=== PATIENT | female | born 1965 | race Caucasian/White ===

== ENCOUNTER → 2021-03-22 | Outpatient (CLI) | payer BC | END | disposition home or self-care (01) | LOC: LABPAT 10:24 | PROVIDERS: ATTEND Surgery Plastic and Reconstructive Surgery | DX: Z01.812 Encounter for preprocedural laboratory examination (principal); Z20.822 Contact with and (suspected) exposure to COVID-19 | CPT/HCPCS: U0003; C9803; U0005 ==

== ENCOUNTER → 2021-09-11 | Outpatient (CLI) | payer BC ==
--- NOTE | 2021-09-11 22:42 | CT ---
EXAMINATION TYPE: CT abdomen pelvis w con CT DLP: 870.60 mGycm, Automated exposure control for dose reduction was used. DATE OF EXAM: 09/11/2021 5:31 PM COMPARISON: None CLINICAL INDICATION:Female, 56 years old with history of C18.9 MALIGNANT NEOPLASM OF COLON, UNSPECIFI ED; lower abdominal pain. hx of mass in colon TECHNIQUE: Standard CT of the abdomen and pelvis following the administration of 100 cc of Isovue 3 00 IV contrast material and oral contrast. Coronal and sagittal reformats were performed. FINDINGS: LOWER CHEST: Unremarkable ABDOMEN LIVER: Unremarkable GALLBLADDER AND BILE DUCTS: Unremarkable. PANCREAS: Unremarkable. SPLEEN: Unremarkable. ADRENAL GLANDS: Unremarkable. KIDNEYS AND URETERS: No evidence of hydronephrosis or renal calculus. PELVIS BLADDER: Unremarkable REPRODUCTIVE: Unremarkable. ABDOMEN & PELVIS STOMACH AND BOWEL: Small hiatal hernia, duodenum is unremarkable. No evidence of mass or bowel wall t hickening. No evidence of bowel obstruction. PERITONEUM: No evidence of pneumoperitoneum or free fluid. VASCULATURE: No evidence of aortic aneurysm. MUSCULOSKELETAL: No acute osseous abnormalities. Mild disc degeneration changes are present throughou t the thoracolumbar spine. LYMPH NODES: No gross evidence for lymphadenopathy. SOFT TISSUE/ABDOMINAL WALL: Tiny fat filled helical hernia. IMPRESSION: No evidence for lymphadenopathy or bowel/intra-abdominal mass.
== END | disposition home or self-care (01) ==
LOC: RADCTMAIN 14:58
PROVIDERS: ATTEND Surgery Plastic and Reconstructive Surgery
DX: C18.9 Malignant neoplasm of colon, unspecified (principal)
CPT/HCPCS: 74177; Q9967

== ENCOUNTER 2021-10-16 08:46 | Day surgery (SDC) | payer BC ==
[2021-10-14 12:08] VITALS: BMI 27.3
[~2021-10-16 08:46] MED LIST: LACTATED RINGERS 1,000 ML IV SCH; LIDOCAINE 1% (10MG/ML) FOR IV START INTRADERMA PRN
[2021-10-16 09:06] VITALS: TEMP 98.4
[2021-10-16 09:33] LABS: Glucose,Whole Blood 83 mg/dL (70-110)
--- NOTE | 2021-10-16 09:40 | P.GSHP ---
History of Present Illness H&P Date: 10/16/21 CHIEF COMPLAINT: Colon screen HISTORY OF PRESENT ILLNESS: The patient is a 56-year-old female who presents for colon screen. Lower endoscopy was offered for further evaluation and management. PAST MEDICAL HISTORY: Please see list. PAST SURGICAL HISTORY: Please see list. MEDICATIONS: Please see list. ALLERGIES: Please see list. SOCIAL HISTORY: No illicit drug use FAMILY HISTORY: No reports of Crohn disease or ulcerative colitis. REVIEW OF ORGAN SYSTEMS: CONSTITUTIONAL: No reports of fevers or chills. PHYSICAL EXAM: VITAL SIGNS: Stable GENERAL: Well-developed pleasant in no acute distress. HEENT: No scleral icterus. Extraocular movements grossly intact. Moist buccal mucosa. NECK: Supple without lymphadenopathy. CHEST: Unlabored respirations. Equal bilateral excursions. CARDIOVASCULAR: Regular rate and rhythm. Distal 2+ pulses. ABDOMEN: Soft, nontender, nondistended. MUSCULOSKELETAL: No clubbing, cyanosis, or edema. ASSESSMENT: 1. Colon screen. PLAN: 1. Recommend proceeding with a lower endoscopy Past Medical History Past Medical History: Asthma, Thyroid Disorder Additional Past Medical History / Comment(s): Hypoglycemia. Rectal bleeding . Hx Diverticulitis. Multiple food allergies.HAS HEADACHES , COLON -TUMOR NON CANCEROUS" History of Any Multi-Drug Resistant Organisms: None Reported Past Surgical History: Tonsillectomy, Tubal Ligation Additional Past Surgical History / Comment(s): Thyroidectomy. Past Anesthesia/Blood Transfusion Reactions: Previous Problems w/ Anesthesia Additional Past Anesthesia/Blood Transfusion Reaction / Comment(s): "Had wheezing and no voice for weeks after thyroidectomy". PER PATIENT Smoking Status: Never smoker - Past Family History Mother Family Medical History: No Reported History Medications and Allergies Home Medications Medication Instructions Recorded Confirmed Type Acetaminophen [Tylenol Extra 1,000 mg PO BID PRN 03/21/21 10/16/21 History Strength] Albuterol Inhaler [Ventolin Hfa 1 puff INHALATION DIRECTED PRN 03/21/21 10/16/21 History Inhaler] Fexofenadine HCl [Digna Allergy] 180 mg PO DAILY PRN 03/21/21 10/16/21 History Lactase [Lactaid] 3,000 unit PO DIRECTED PRN 03/21/21 10/16/21 History Levothyroxine Sodium [Tirosint] 88 mcg PO DAILY 03/21/21 10/16/21 History Montelukast Sodium [Singulair] 10 mg PO HS 03/21/21 10/16/21 History calcitrioL [Calcitriol] 0.25 mcg PO DAILY 03/21/21 10/16/21 History diphenhydrAMINE HCL [Children's 12.5 mg PO HS PRN 03/21/21 10/16/21 History Benadryl Allergy] Ascorbic Acid [Vitamin C] 1,000 mg PO TID 10/14/21 10/16/21 History Fluticasone Propion/Salmeterol 1 inhalation PO BID 10/14/21 10/16/21 History [Wixela 500-50 Inhub] Allergies Allergy/AdvReac Type Severity Reaction Status Date / Time aloe Allergy Rash/Hives Verified 10/16/21 09:08 banana Allergy Unknown Verified 10/16/21 09:08 cefaclor [From Ceclor] Allergy Unknown Verified 10/16/21 09:08 [place] And Derivatives Allergy Unknown Verified 10/16/21 09:08 [[place]] clarithromycin [From Biaxin] Allergy Diarrhea Verified 10/16/21 09:08 coffee (Coffea arabica) Allergy Wheezing Verified 10/16/21 09:08 egg Allergy Vomiting Verified 10/16/21 09:08 Fish Containing Products Allergy Unknown Verified 10/16/21 09:08 [Fish] kiwi Allergy Unknown Verified 10/16/21 09:08 latex Allergy BURNING Verified 10/16/21 09:08 FEELING OF MOUTH,ITCHING Milk Containing Products Allergy Diarrhea Verified 10/16/21 09:08 [Dairy] onion Allergy Gas Verified 10/16/21 09:08 peanut Allergy Burning Verified 10/16/21 09:08 skin silk Allergy Rash/Hives Verified 10/16/21 09:08 Sulfa (Sulfonamide Allergy Alters mood Verified 10/16/21 09:08 Antibiotics) sulfamethoxazole Allergy Rash/Hives Verified 10/16/21 09:08 [From Septra] trimethoprim [From Septra] Allergy Rash/Hives Verified 10/16/21 09:08 Artificial Colors/Flavors Allergy Unknown Uncoded 10/16/21 09:08 Seafood Allergy Unknown Uncoded 10/16/21 09:08 Vegetables Allergy Pain Uncoded 10/16/21 09:08 (Abdominal/Back) Surgical - Exam Vital Signs Temp Pulse Resp BP Pulse Ox 98.4 F 98 18 106/73 99 10/16/21 09:01 10/16/21 09:01 10/16/21 09:01 10/16/21 09:01 10/16/21 09:01
[2021-10-16] MEDS ORDERED: PROPOFOL 10 MG/ML 20 ML VIAL IV ONE (10:01)
[2021-10-16] MEDS ORDERED: LIDOCAINE 2% INJ 20 MG/ML (2 ML VIAL) ONE (10:01)
--- NOTE | 2021-10-16 11:01 | P.PCN ---
Date of Procedure: 10/16/21 Description of Procedure: PREOPERATIVE DIAGNOSIS: Ascending colon adenoma POSTOPERATIVE DIAGNOSIS: Ascending colon adenoma Sigmoid diverticulosis Grade 4 internal/external hemorrhoid OPERATION: Colonoscopy to the ileocecal valve and appendiceal orifice, cecum Colonoscopy with hot snare polypectomy, ascending colon adenoma and retrieval with Lind net Colonoscopy with ablation, ascending colon adenoma SURGEON: Kamille Birmingham MD. ANESTHESIA: MAC. INDICATIONS: The patient is an 56-year-old female who presents with incomplete resection of ascending colon adenoma. She presents for treatment or reexcision of the area. Benefits and risks were described and informed consent was obtained. DESCRIPTION OF PROCEDURE: The patient had undergone Sutab prep. The patient had been brought into the operating room and laid in the left lateral decubitus position. After adequate intravenous sedation, the rectum was examined with 2% lidocaine jelly. External hemorrhoids were encountered. The rectal tone was within normal limits. No lesions were palpated in the rectal vault. An Olympus colonoscope was advanced until the cecum, ileocecal valve and appendiceal orifice were clearly viewed. The prep was excellent. Sigmoid diverticulosis was encountered. Combination of hot snare resection, ablation, Lind and extraction was performed for ascending adenoma. No evidence of focal colitis was found. Retroflexion of the scope demonstrated grade 4 internal hemorrhoids without active bleeding or inf lammation. The colon was desufflated. The patient had tolerated the procedure well. Withdrawal time was over 6 minutes. FINDINGS: Aronchick preparation quality scale 1 (1-5) Internal hemorrhoids, grade 4 External hemorrhoids, grade 4. No arteriovenous malformations. Sigmoid diverticulosis Piecemeal resection of flat villous adenoma, 3 cm, ascending colon using rotatable snare, ablation and RothNet extraction Residual blue dye ascending colon Highly tortuous sigmoid colon on abdominal wall pressure No focal colitis. RECOMMENDATIONS: Repeat colonoscopy in 6 months, Apr 2022 for piecemeal resection of flat villous adenoma Plan - Discharge Summary Discharge Rx Participant: No New Discharge Prescriptions: Continue Albuterol Inhaler [Ventolin Hfa Inhaler] 1 puff INHALATION DIRECTED PRN PRN Reason: Asthma Fexofenadine HCl [Digna Allergy] 180 mg PO DAILY PRN PRN Reason: ALLERGIES Montelukast Sodium [Singulair] 10 mg PO HS Lactase [Lactaid] 3,000 unit PO DIRECTED PRN PRN Reason: When consuming dairy Ascorbic Acid [Vitamin C] 1,000 mg PO TID diphenhydrAMINE HCL [Children's Benadryl Allergy] 12.5 mg PO HS PRN PRN Reason: ALLERGIES calcitrioL [Calcitriol] 0.25 mcg PO DAILY Levothyroxine Sodium [Tirosint] 88 mcg PO DAILY Acetaminophen [Tylenol Extra Strength] 1,000 mg PO BID PRN PRN Reason: Pain Fluticasone Propion/Salmeterol [Wixela 500-50 Inhub] 1 inhalation PO BID Discharge Medication List Acetaminophen [Tylenol Extra Strength] 1,000 mg PO BID PRN 03/21/21 [History] Albuterol Inhaler [Ventolin Hfa Inhaler] 1 puff INHALATION DIRECTED PRN 03/21/21 [History] Fexofenadine HCl [Digna Allergy] 180 mg PO DAILY PRN 03/21/21 [History] Lactase [Lactaid] 3,000 unit PO DIRECTED PRN 03/21/21 [History] Levothyroxine Sodium [Tirosint] 88 mcg PO DAILY 03/21/21 [History] Montelukast Sodium [Singulair] 10 mg PO HS 03/21/21 [History] calcitrioL [Calcitriol] 0.25 mcg PO DAILY 03/21/21 [History] diphenhydrAMINE HCL [Children's Benadryl Allergy] 12.5 mg PO HS PRN 03/21/21 [History] Ascorbic Acid [Vitamin C] 1,000 mg PO TID 10/14/21 [History] Fluticasone Propion/Salmeterol [Wixela 500-50 Inhub] 1 inhalation PO BID 10/14/21 [History] Follow up Appointment(s)/Referral(s): Kamille Birmingham MD [STAFF PHYSICIAN] - 11/12/21 Patient Instructions/Handouts: *Surgery [facility] - (Anesthesia) Endoscopy Discharge Instructions Activity/Diet/Wound Care/Special Instructions: Repeat colonoscopy in 1 year, 2022 Discharge Disposition: HOME SELF-CARE
[2021-10-16 11:10] VITALS: BP 105/73; PULSE 73; RESP 20
== END 2021-10-16 11:39 | disposition home or self-care (01) ==
LOC: ORWHC2ENDO 08:46
PROVIDERS: ATTEND Surgery Plastic and Reconstructive Surgery
DX: D12.2 Benign neoplasm of ascending colon (principal); K57.30 Diverticulosis of large intestine without perforation or abscess without bleeding; K64.4 Residual hemorrhoidal skin tags; K64.3 Fourth degree hemorrhoids; Q43.8 Other specified congenital malformations of intestine; J45.909 Unspecified asthma, uncomplicated; E16.2 Hypoglycemia, unspecified; Z87.19 Personal history of other diseases of the digestive system; Z98.51 Tubal ligation status; E89.0 Postprocedural hypothyroidism; Z79.890 Hormone replacement therapy; Z79.899 Other long term (current) drug therapy; Z88.1 Allergy status to other antibiotic agents; Z91.012 Allergy to eggs; Z91.040 Latex allergy status; Z91.011 Allergy to milk products; Z91.010 Allergy to peanuts; Z91.013 Allergy to seafood; Z88.2 Allergy status to sulfonamides; Z88.8 Allergy status to other drugs, medicaments and biological substances; Z91.018 Allergy to other foods
CPT/HCPCS: 88305; 45385; 45388; J2704; J2001

== ENCOUNTER → 2021-11-18 | Outpatient (CLI) | payer BC ==
[2021-11-18 16:28] LABS: INR 0.9 (<1.2); Partial Thromboplastin Time 24.4 sec (22.0-30.0); Prothrombin Time 10.2 sec (9.0-12.0)
[2021-11-19 00:19] LABS: % Iron Saturation 17.71 (12.00-45.00); ALT 16 U/L (8-44); AST 23 U/L (13-35); African American GFR (CKD) 126.5 (60.0-200.0); Albumin 4.1 g/dL (3.8-4.9); Albumin/Globulin Ratio 1.64 (1.60-3.17); Alkaline Phosphatase 71 U/L (41-126); BUN/Creat Ratio 12.66 Ratio (12.00-20.00); Blood Urea Nitrogen 5.9 mg/dL (9.0-27.0); Calcium 8.5 mg/dL (8.7-10.3); Carbon Dioxide 29.7 mmol/L (20.0-27.5); Chloride 101 mmol/L (96-109); Globulin 2.5 g/dL (1.6-3.3); Glucose 97 mg/dL (70-110); Iron 60 ug/dL (50-170); Magnesium 2.2 mg/dL (1.5-2.4); Non-African American GFR(CKD) 109.1 (60.0-200.0); Phosphorus 3.9 mg/dL (2.4-5.1); Potassium 3.6 mmol/L (3.5-5.5); Sodium 143 mmol/L (135-145); Total Iron Binding Capacity 336 ug/dL (228-460); Total Protein 6.6 g/dL (6.2-8.2)
[2021-11-19 01:43] LABS: HCT 36.2 % (37.2-46.3); HGB 12.1 g/dL (12.0-15.0); MCH 33.4 pg (27.0-32.0); MCHC 33.4 g/dL (32.0-37.0); NRBC Per 100 WBC 0 /100 WBCS (0.0-0.0); Platelet Count 197 X 10*3/uL (140-440); RBC 3.62 X 10*6/uL (4.10-5.20); RDW 12.7 % (11.5-14.5); WBC 7.33 X 10*3/uL (4.50-10.00)
[2021-11-19 03:08] LABS: Chol/HDL Ratio 3.64 Ratio; LDL Cholesterol,Calculated 71.8 mg/dL (0.0-131.0); Prealbumin 17.4 mg/dL (18.0-42.0)
== END | disposition home or self-care (01) ==
LOC: LABPAT 15:30
PROVIDERS: ATTEND Surgery Plastic and Reconstructive Surgery
DX: E66.01 Morbid (severe) obesity due to excess calories (principal); E89.1 Postprocedural hypoinsulinemia; D50.8 Other iron deficiency anemias; E44.0 Moderate protein-calorie malnutrition; E55.9 Vitamin D deficiency, unspecified; K74.1 Hepatic sclerosis; N19 Unspecified kidney failure; K50.90 Crohn's disease, unspecified, without complications
CPT/HCPCS: 80053; 80061; 82306; 82525; 82607; 82728; 82746; 83036; 83540; 83550; 83735; 83970; 84100; 84134; 84255; 84425; 84443; 84590; 84630; 85027; 85610; 85730

== ENCOUNTER 2022-07-23 06:44 | Day surgery (SDC) | payer BC ==
[~2022-07-23 06:44] MED LIST changes: -LIDOCAINE 1% (10MG/ML) FOR IV START INTRADERMA PRN
[2022-07-23 07:14] VITALS: RESP 16; TEMP 97.5
[2022-07-23 07:24] LABS: Glucose,Whole Blood 87 mg/dL (70-110)
[2022-07-23] MEDS ORDERED: PROPOFOL 10 MG/ML 20 ML VIAL IV ONE (07:46)
--- NOTE | 2022-07-23 07:51 | P.GSHP ---
History of Present Illness H&P Date: 07/23/22 CHIEF COMPLAINT: Colon screen HISTORY OF PRESENT ILLNESS: The patient is a 57-year-old female who presents for colon screen. Lower endoscopy was offered for further evaluation and management. PAST MEDICAL HISTORY: Please see list. PAST SURGICAL HISTORY: Please see list. MEDICATIONS: Please see list. ALLERGIES: Please see list. SOCIAL HISTORY: No illicit drug use FAMILY HISTORY: No reports of Crohn disease or ulcerative colitis. REVIEW OF ORGAN SYSTEMS: CONSTITUTIONAL: No reports of fevers or chills. PHYSICAL EXAM: VITAL SIGNS: Stable GENERAL: Well-developed pleasant in no acute distress. HEENT: No scleral icterus. Extraocular movements grossly intact. Moist buccal mucosa. NECK: Supple without lymphadenopathy. CHEST: Unlabored respirations. Equal bilateral excursions. CARDIOVASCULAR: Regular rate and rhythm. Distal 2+ pulses. ABDOMEN: Soft, nontender, nondistended. MUSCULOSKELETAL: No clubbing, cyanosis, or edema. ASSESSMENT: 1. Colon screen. PLAN: 1. Recommend proceeding with a lower endoscopy Past Medical History Past Medical History: Asthma, Thyroid Disorder Additional Past Medical History / Comment(s): Hypoglycemia. Rectal bleeding . Hx Diverticulitis. Multiple food allergies.HAS HEADACHES , COLON -TUMOR NON CANCEROUS" History of Any Multi-Drug Resistant Organisms: None Reported Past Surgical History: Tonsillectomy, Tubal Ligation Additional Past Surgical History / Comment(s): Thyroidectomy. Past Anesthesia/Blood Transfusion Reactions: Previous Problems w/ Anesthesia Additional Past Anesthesia/Blood Transfusion Reaction / Comment(s): "Had wheezing and no voice for weeks after thyroidectomy". PER PATIENT Past Psychological History: No Psychological Hx Reported Smoking Status: Never smoker Past Alcohol Use History: None Reported Past Drug Use History: None Reported - Past Family History Mother Family Medical History: No Reported History Medications and Allergies Home Medications Medication Instructions Recorded Confirmed Type Acetaminophen [Tylenol Extra 1,000 mg PO BID PRN 03/21/21 07/21/22 History Strength] Albuterol Inhaler [Ventolin Hfa 1 puff INHALATION DIRECTED PRN 03/21/21 07/21/22 History Inhaler] Fexofenadine HCl [Digna Allergy] 180 mg PO DAILY PRN 03/21/21 07/21/22 History Lactase [Lactaid] 3,000 unit PO DIRECTED PRN 03/21/21 07/21/22 History Levothyroxine Sodium [Tirosint] 88 mcg PO DAILY 03/21/21 07/21/22 History Montelukast Sodium [Singulair] 10 mg PO HS 03/21/21 07/21/22 History calcitrioL [Calcitriol] 0.25 mcg PO DAILY 03/21/21 07/21/22 History diphenhydrAMINE HCL [Children's 12.5 mg PO HS PRN 03/21/21 07/21/22 History Benadryl Allergy] Ascorbic Acid [Vitamin C] 1,000 mg PO TID 10/14/21 07/21/22 History Fluticasone Propion/Salmeterol 1 inhalation PO BID 10/14/21 07/21/22 History [Wixela 500-50 Inhub] Calcium Carbonate [Calcium] 1 tab PO DAILY 07/21/22 07/21/22 History Ketotifen 0.025% Ophth Soln 1 drop BOTH EYES DAILY 07/21/22 07/21/22 History [Zaditor] Magnesium Citrate and Oxide 1 tab PO DAILY 07/21/22 07/21/22 History [Magnesium] hydroCHLOROthiazide 0.5 tab PO QAM 07/21/22 07/21/22 History Allergies Allergy/AdvReac Type Severity Reaction Status Date / Time aloe Allergy Rash/Hives Verified 07/23/22 07:09 banana Allergy Unknown Verified 07/23/22 07:09 blackberry Allergy Swelling Verified 07/23/22 07:09 cabbage Allergy Abdominal Verified 07/23/22 07:09 Pain cefaclor [From Ceclor] Allergy Unknown Verified 07/23/22 07:09 [place] And Derivatives Allergy Unknown Verified 07/23/22 07:09 [[place]] clarithromycin [From Biaxin] Allergy Diarrhea Verified 07/23/22 07:09 coffee (Coffea arabica) Allergy Wheezing Verified 07/23/22 07:09 egg Allergy Vomiting Verified 07/23/22 07:09 Fish Containing Products Allergy Unknown Verified 07/23/22 07:09 [Fish] kiwi Allergy Unknown Verified 07/23/22 07:09 latex Allergy BURNING Verified 07/23/22 07:09 FEELING OF MOUTH,ITCHING Milk Containing Products Allergy Diarrhea Verified 07/23/22 07:09 [Dairy] onion Allergy Gas Verified 07/23/22 07:09 peanut Allergy Burning Verified 07/23/22 07:09 skin potato Allergy Abdominal Verified 07/23/22 07:09 Pain raspberry Allergy Swelling Verified 07/23/22 07:09 silk Allergy Rash/Hives Verified 07/23/22 07:09 Sulfa (Sulfonamide Allergy Alters mood Verified 07/23/22 07:09 Antibiotics) sulfamethoxazole Allergy Rash/Hives Verified 07/23/22 07:09 [From ] trimethoprim [From ] Allergy Rash/Hives Verified 07/23/22 07:09 Artificial Colors/Flavors Allergy Unknown Uncoded 07/23/22 07:09 [place] Allergy Abdominal Uncoded 07/23/22 07:09 Pain Seafood Allergy Unknown Uncoded 07/23/22 07:09 Vegetables Allergy Pain Uncoded 07/23/22 07:09 (Abdominal/Back) Surgical - Exam Vital Signs Temp Pulse Resp BP Pulse Ox 97.5 F L 120 H 16 156/66 99 07/23/22 07:13 07/23/22 07:13 07/23/22 07:13 07/23/22 07:13 07/23/22 07:13
[2022-07-23 08:31] VITALS: BP 106/67; PULSE 89
--- NOTE | 2022-07-23 09:09 | P.PCN ---
Date of Procedure: 07/23/22 Description of Procedure: PREOPERATIVE DIAGNOSIS: Personal history of colon polyps Colonoscopy screening POSTOPERATIVE DIAGNOSIS: Unresectable tubular villous adenoma hepatic flexure/ascending colon Sigmoid diverticulosis Internal hemorrhoids, grade 4 OPERATION: Colonoscopy to the ileocecal valve and appendiceal orifice, cecum Colonoscopy with hot snare polypectomy SURGEON: Kamille Birmingham MD. ANESTHESIA: MAC. INDICATIONS: The patient is an 57-year-old female who presents to history colon polyps. Last colonoscopy within 5 years. Benefits and risks were described and informed consent was obtained. DESCRIPTION OF PROCEDURE: The patient had undergone Sutab prep. The patient had been brought into the operating room and laid in the left lateral decubitus position. After adequate intravenous sedation, the rectum was examined with 2% lidocaine jelly. External hemorrhoids were encountered. The rectal tone was within normal limits. No lesions were palpated in the rectal vault. An Olympus colonoscope was advanced until the cecum, ileocecal valve and appendiceal orifice were clearly viewed. The prep was good. Sigmoid diverticulosis was encountered. Colonic polyps were found and removed. No evidence of focal colitis was found. Retroflexion of the scope demonstrated grade 4 internal hemorrhoids without active bleeding or inflammation. The colon was desufflated. The patient had tolerated the procedure well. Withdrawal time was over 6 minutes. FINDINGS: Aron[place]ick preparation quality scale 2 (1-5) Internal hemorrhoids, grade 4 External hemorrhoids, grade 4. No arteriovenous malformations. Sigmoid diverticulosis Tattoo dye benefit verified at hepatic flexure Removal of 1 polyp: - Snare polypectomy hepatic flexure/ascending colon, flat 15 mm mm tubulovillous adenoma, piecemeal resection, incomplete No focal colitis. RECOMMENDATIONS: Recommend resection of recurrent hepatic flexure/ascending tubulovillous adenoma Plan - Discharge Summary Discharge Rx Participant: No New Discharge Prescriptions: Continue Albuterol Inhaler [Ventolin Hfa Inhaler] 1 puff INHALATION DIRECTED PRN PRN Reason: Asthma Fexofenadine HCl [Digna Allergy] 180 mg PO DAILY PRN PRN Reason: ALLERGIES Montelukast Sodium [Singulair] 10 mg PO HS Lactase [Lactaid] 3,000 unit PO DIRECTED PRN PRN Reason: When consuming dairy Ascorbic Acid [Vitamin C] 1,000 mg PO TID Calcium Carbonate [Calcium] 1 tab PO DAILY hydroCHLOROthiazide 0.5 tab PO QAM Magnesium Citrate and Oxide [Magnesium] 1 tab PO DAILY diphenhydrAMINE HCL [Children's Benadryl Allergy] 12.5 mg PO HS PRN PRN Reason: ALLERGIES calcitrioL [Calcitriol] 0.25 mcg PO DAILY Levothyroxine Sodium [Tirosint] 88 mcg PO DAILY Acetaminophen [Tylenol Extra Strength] 1,000 mg PO BID PRN PRN Reason: Pain Fluticasone Propion/Salmeterol [Wixela 500-50 Inhub] 1 inhalation PO BID Ketotifen 0.025% Ophth Soln [Zaditor] 1 drop BOTH EYES DAILY Discharge Medication List Acetaminophen [Tylenol Extra Strength] 1,000 mg PO BID PRN 03/21/21 [History] Albuterol Inhaler [Ventolin Hfa Inhaler] 1 puff INHALATION DIRECTED PRN 03/21/21 [History] Fexofenadine HCl [Digna Allergy] 180 mg PO DAILY PRN 03/21/21 [History] Lactase [Lactaid] 3,000 unit PO DIRECTED PRN 03/21/21 [History] Levothyroxine Sodium [Tirosint] 88 mcg PO DAILY 03/21/21 [History] Montelukast Sodium [Singulair] 10 mg PO HS 03/21/21 [History] calcitrioL [Calcitriol] 0.25 mcg PO DAILY 03/21/21 [History] diphenhydrAMINE HCL [Children's Benadryl Allergy] 12.5 mg PO HS PRN 03/21/21 [History] Ascorbic Acid [Vitamin C] 1,000 mg PO TID 10/14/21 [History] Fluticasone Propion/Salmeterol [Wixela 500-50 Inhub] 1 inhalation PO BID 10/14/21 [History] Calcium Carbonate [Calcium] 1 tab PO DAILY 07/21/22 [History] Ketotifen 0.025% Ophth Soln [Zaditor] 1 drop BOTH EYES DAILY 07/21/22 [History] Magnesium Citrate and Oxide [Magnesium] 1 tab PO DAILY 07/21/22 [History] hydroCHLOROthiazide 0.5 tab PO QAM 07/21/22 [History] Follow up Appointment(s)/Referral(s): Kamille Birmingham MD [STAFF PHYSICIAN] - 08/12/22 11:00 am Patient Instructions/Handouts: Colorectal Polyps (GEN), Diverticulosis Diet (GEN), Diverticulosis (GEN) Activity/Diet/Wound Care/Special Instructions: Recommend resection for unresectable adenoma Discharge Disposition: HOME SELF-CARE
== END 2022-07-23 09:49 | disposition home or self-care (01) ==
LOC: ORWHC2ENDO 06:44
PROVIDERS: ATTEND Surgery Plastic and Reconstructive Surgery
DX: Z12.11 Encounter for screening for malignant neoplasm of colon (principal); D12.2 Benign neoplasm of ascending colon; K64.3 Fourth degree hemorrhoids; K57.30 Diverticulosis of large intestine without perforation or abscess without bleeding; K64.4 Residual hemorrhoidal skin tags; J45.909 Unspecified asthma, uncomplicated; E07.9 Disorder of thyroid, unspecified; Z90.89 Acquired absence of other organs; Z98.51 Tubal ligation status; Z79.899 Other long term (current) drug therapy; Z86.010 Personal history of colon polyps
CPT/HCPCS: 88305; 45385; J2704

== ENCOUNTER → 2022-10-03 | Outpatient (CLI) | payer BC ==
[~2022-10-03] MED LIST changes: +ACETAMINOPHEN TAB 500 MG TAB PO PRN; +ALVIMOPAN 12 MG CAPSULE PO PRN; +Antibiotics per Pharmacy 1 EACH MISC MISCELLANE PRN; +DEXAMETHASONE SOD PHOSPHATE 4 MG/ML 1 ML VIAL IV ONE; +HEPARIN SODIUM,PORCINE/PF 5,000 UNIT/0.5 ML SYRINGE SQ PRN; +HYDROmorphone 0.5 MG/0.5 ML SYRINGE IVP PRN; +LACTATED RINGERS 1,000 ML IV ONE; +LIDOCAINE 1% (10MG/ML) FOR IV START INTRADERMA PRN; +ONDANSETRON 4 MG/2 ML VIAL IVP PRN; +POTASSIUM CHLORIDE 20 MEQ in WATER FOR INJECTION 1 100ML.BAG IVPB STA; +POTASSIUM CHLORIDE ER 20 MEQ TAB.ER PO STA; +SODIUM CHLORIDE 0.9% 2,000 ML IV ONE; +metroNIDAZOLE-NS PMX 500 MG in SALINE 1 100ML.BAG IVPB PRN
--- NOTE | 2022-10-03 07:42 | P.GSHP ---
History of Present Illness H&P Date: 10/03/22 CHIEF COMPLAINT: Unresectable adenoma HISTORY OF PRESENT ILLNESS: The patient is a 57-year-old female with a two-year history of recurrent growth unresectable adenoma of the ascending colon/hepatic flexure. Despite multiple endoscopy attempts, tumor regrows. Now she presents for sigmoid colon resection. No recent blood in stools. PAST MEDICAL HISTORY: Please see list. PAST SURGICAL HISTORY: Please see list. MEDICATIONS: Please see list. ALLERGIES: Please see list. SOCIAL HISTORY: No illicit drug use FAMILY HISTORY: No reports of Crohn disease or ulcerative colitis. REVIEW OF ORGAN SYSTEMS: CONSTITUTIONAL: Denies any fever or chills. HEENT: Denies any trouble with vision or nosebleeds. No difficulty swallowing. LYMPHATIC: The patient denies any lumps and bumps around the neck. ENDOCRINE: Denies any thyroid disorders. Denies blood sugar glucose intolerance. RESPIRATORY: Denies pneumonia. Denies any troubles with breathing or dyspnea on exertion. CARDIOVASCULAR: Denies any chest pain, palpitations, or recent heart attacks. She saw her glassware finisher within the last week and was cleared for surgery. Has hypertension. GASTROINTESTINAL: Recurrent unresectable adenoma. Has multiple drug ALLERGIES. GENITOURINARY: Has increased urinary frequency. MUSCULOSKELETAL: Has back pain, stiffness, joint arthritis. NEUROLOGIC: Denies any numbness or tingling along the distal extremities. No seizure disorders or headaches. PSYCHIATRIC: Denies depression or suidical ideation. HEMATOLOGIC: Denies any abnormal bleeding or bruising. PHYSICAL EXAM: VITAL SIGNS: Stable GENERAL: Well-developed pleasant in no acute distress. HEENT: No scleral icterus. Extraocular movements grossly intact. Moist buccal mucosa. He is hard of hearing. NECK: Supple without lymphadenopathy. CHEST: Unlabored respirations. Equal bilateral excursions. CARDIOVASCULAR: Regular rate and rhythm. Distal 2+ pulses. ABDOMEN: Soft, nontender, nondistended. MUSCULOSKELETAL: No clubbing, cyanosis, or edema. NERUO: Regular 2-12 grossly intact. PSYCH: Alert and oriented to person place and time. ASSESSMENT: 1. Unresectable adenoma, ascending/hepatic flexure 2. Multiple drug ALLERGIES PLAN: 1. Benefits and risks of surgical intervention right colectomy for unresectable adenoma. Robotic-assisted approach was also described. 2. She has completed an enhanced colon recovery program. 3. DVT prophylaxis. 4. Antibiotic prophylaxis. 5. She is elevated risk due to pre-existing comorbidities Past Medical History Past Medical History: Asthma, Thyroid Disorder Additional Past Medical History / Comment(s): Hypoglycemia. Rectal bleeding . Hx Diverticulitis. Multiple food allergies.HAS HEADACHES , COLON -TUMOR NON CANCEROUS" History of Any Multi-Drug Resistant Organisms: None Reported Past Surgical History: Tonsillectomy, Tubal Ligation Additional Past Surgical History / Comment(s): Thyroidectomy. Past Anesthesia/Blood Transfusion Reactions: Previous Problems w/ Anesthesia Additional Past Anesthesia/Blood Transfusion Reaction / Comment(s): "Had wheezing and no voice for weeks after thyroidectomy". PER PATIENT Past Psychological History: No Psychological Hx Reported Smoking Status: Never smoker Past Alcohol Use History: None Reported Past Drug Use History: None Reported - Past Family History Mother Family Medical History: No Reported History Medications and Allergies Home Medications Medication Instructions Recorded Confirmed Type Acetaminophen [Tylenol Extra 1,000 mg PO BID PRN 03/21/21 09/26/22 History Strength] Albuterol Inhaler [Ventolin Hfa 1 puff INHALATION DIRECTED PRN 03/21/21 09/26/22 History Inhaler] Fexofenadine HCl [Digna Allergy] 180 mg PO DAILY PRN 03/21/21 09/26/22 History Lactase [Lactaid] 3,000 unit PO DIRECTED PRN 03/21/21 09/26/22 History Levothyroxine Sodium [Tirosint] 88 mcg PO QAM 03/21/21 09/26/22 History Montelukast Sodium [Singulair] 10 mg PO HS 03/21/21 09/26/22 History calcitrioL [Calcitriol] 0.25 mcg PO DAILY 03/21/21 09/26/22 History diphenhydrAMINE HCL [Children's 12.5 mg PO HS PRN 03/21/21 09/26/22 History Benadryl Allergy] Ascorbic Acid [Vitamin C] 1,000 mg PO TID 10/14/21 09/26/22 History Fluticasone Propion/Salmeterol 1 inhalation PO BID 10/14/21 09/26/22 History [Wixela 500-50 Inhub] Calcium Carbonate [Calcium] 1 tab PO DAILY 07/21/22 09/26/22 History Ketotifen 0.025% Ophth Soln 1 drop BOTH EYES DAILY 07/21/22 09/26/22 History [Zaditor] Magnesium Citrate and Oxide 1 tab PO DAILY 07/21/22 09/26/22 History [Magnesium] hydroCHLOROthiazide 0.5 tab PO QAM 07/21/22 09/26/22 History Ciprofloxacin HCl [Cipro] 250 mg PO BID 09/29/22 09/29/22 History Allergies Allergy/AdvReac Type Severity Reaction Status Date / Time aloe Allergy Rash/Hives Verified 07/23/22 07:09 banana Allergy Unknown Verified 07/23/22 07:09 blackberry Allergy Swelling Verified 07/23/22 07:09 cabbage Allergy Abdominal Verified 07/23/22 07:09 Pain cefaclor [From Ceclor] Allergy Unknown Verified 07/23/22 07:09 citric acid Allergy Unknown Verified 09/26/22 11:32 [place] And Derivatives Allergy Unknown Verified 07/23/22 07:09 [[place]] clarithromycin [From Biaxin] Allergy Diarrhea Verified 07/23/22 07:09 coffee (Coffea arabica) Allergy Wheezing Verified 07/23/22 07:09 egg Allergy Vomiting Verified 07/23/22 07:09 Fish Containing Products Allergy Unknown Verified 07/23/22 07:09 [Fish] kiwi Allergy Unknown Verified 07/23/22 07:09 latex Allergy BURNING Verified 10/03/22 07:37 FEELING OF MOUTH,ITCHING Milk Containing Products Allergy Diarrhea Verified 10/03/22 07:37 [Dairy] onion Allergy Gas Verified 10/03/22 07:37 peanut Allergy Burning Verified 10/03/22 07:37 skin peas Allergy Rash/Hives Verified 10/03/22 07:37 potato Allergy Abdominal Verified 10/03/22 07:37 Pain raspberry Allergy Swelling Verified 10/03/22 07:37 silk Allergy Rash/Hives Verified 10/03/22 07:37 spinach Allergy Rash/Hives Verified 10/03/22 07:37 Sulfa (Sulfonamide Allergy Alters mood Verified 10/03/22 07:37 Antibiotics) sulfamethoxazole Allergy Rash/Hives Verified 10/03/22 07:37 [From Septra] sweet potato Allergy Unknown Verified 10/03/22 07:38 trimethoprim [From Octra] Allergy Rash/Hives Verified 10/03/22 07:37 Artificial Colors/Flavors Allergy Unknown Uncoded 10/03/22 07:37 PEPPERS Allergy Abdominal Uncoded 10/03/22 07:37 Pain Seafood Allergy Unknown Uncoded 10/03/22 07:37 Vegetables Allergy Pain Uncoded 10/03/22 07:37 (Abdominal/Back) YELLOW SQUASH Allergy Rash/Hives Uncoded 10/03/22 07:37
[2022-10-03 07:51] VITALS: RESP 16; TEMP 98.1
[2022-10-03 07:57] LABS: Glucose,Whole Blood 86 mg/dL (70-110)
[2022-10-03 08:10] LABS: Basophils % (A) 0 %; Eosinophils # (A) 0.1 k/uL (0-0.7); Eosinophils % (A) 1 %; HCT 35.2 % (34.0-46.0); HGB 12.8 gm/dL (11.4-16.0); Lymphocytes # (A) 1.3 k/uL (1.0-4.8); Lymphocytes % (A) 12 %; MCH 34.4 pg (25.0-35.0); MCHC 36.5 g/dL (31.0-37.0); MCV 94.2 fL (80.0-100.0); Mean Platelet Volume 9.8; Monocytes # (A) 0.6 k/uL (0-1.0); Monocytes % (A) 6 %; Neutrophils # (A) 8.4 k/uL (1.3-7.7); Neutrophils % (A) 80 %; Platelet Count 225 k/uL (150-450); RBC 3.73 m/uL (3.80-5.40); RDW 11.7 % (11.5-15.5); WBC 10.6 k/uL (3.8-10.6)
[2022-10-03 08:22] LABS: ALT 26 U/L (4-34); AST 25 U/L (14-36); African American GFR (CKD) >90 (>60 ml/min/1.73 sqM); Albumin 4.3 g/dL (3.5-5.0); Alkaline Phosphatase 81 U/L (38-126); Anion Gap 12 mmol/L; Blood Urea Nitrogen 8 mg/dL (7-17); Calcium 7.5 mg/dL (8.4-10.2); Carbon Dioxide 30 mmol/L (22-30); Chloride 94 mmol/L (98-107); Glucose 91 mg/dL (74-99); Non-African American GFR(CKD) >90 (>60 ml/min/1.73 sqM); Potassium 2.9 mmol/L (3.5-5.1); Sodium 136 mmol/L (137-145); Total Bilirubin 0.6 mg/dL (0.2-1.3); Total Protein 6.9 g/dL (6.3-8.2)
--- NOTE | 2022-10-03 08:50 | P.DS ---
Providers Date of admission: 10/03/22 07:11 Expected date of discharge: 10/03/22 Attending physician: Kamille Birmingham Primary care physician: [facility] Course: Patient presented to the hospital to undergo resection of unresectable adenoma of the ascending colon/hepatic flexure. Labs were obtained demonstrating severe drop of potassium from 4.1-2.9 in 48 hours. Patient has intractable nausea and vomiting since yesterday morning. Upon discussion with anesthesia provider, discontinuing procedure discussed. Options reviewed with patient including correction of potassium with repeat labs today to resume her surgery versus admission with resuming her surgery tomorrow versus canceling her case. Upon overview of her chart and lack of stress test prior to her surgery, patient opted to reschedule her procedure after correction of potassium and complete cardiac risk assessment with a stress test. Shared decision-making was performed. Overall, correction of potassium to be performed with oral and IV potassium. Patient to be discharged after correction of potassium with follow up with cleaning maid for complete cardiac risk assessment stress test. Discontinuing hydrochlorothiazide over the weakened described. Additionally, follow-up in the office as outpatient. Recommend future procedure with admission 24 hours prior to her surgery due to her risks. Patient Condition at Discharge: Fair Plan - Discharge Summary Discharge Rx Participant: No New Discharge Prescriptions: No Action Albuterol Inhaler [Ventolin Hfa Inhaler] 1 puff INHALATION DIRECTED PRN PRN Reason: Asthma Fexofenadine HCl [Digna Allergy] 180 mg PO DAILY PRN PRN Reason: ALLERGIES Montelukast Sodium [Singulair] 10 mg PO HS Lactase [Lactaid] 3,000 unit PO DIRECTED PRN PRN Reason: When consuming dairy Ascorbic Acid [Vitamin C] 1,000 mg PO TID Calcium Carbonate [Calcium] 1 tab PO DAILY hydroCHLOROthiazide 0.5 tab PO QAM Magnesium Citrate and Oxide [Magnesium] 1 tab PO DAILY Ciprofloxacin HCl [Cipro] 250 mg PO BID diphenhydrAMINE HCL [Children's Benadryl Allergy] 12.5 mg PO HS PRN PRN Reason: ALLERGIES calcitrioL [Calcitriol] 0.25 mcg PO DAILY Levothyroxine Sodium [Tirosint] 88 mcg PO QAM Acetaminophen [Tylenol Extra Strength] 1,000 mg PO BID PRN PRN Reason: Pain Fluticasone Propion/Salmeterol [Wixela 500-50 Inhub] 1 inhalation PO BID Ketotifen 0.025% Ophth Soln [Zaditor] 1 drop BOTH EYES DAILY Discharge Medication List Acetaminophen [Tylenol Extra Strength] 1,000 mg PO BID PRN 03/21/21 [History] Albuterol Inhaler [Ventolin Hfa Inhaler] 1 puff INHALATION DIRECTED PRN 03/21/21 [History] Fexofenadine HCl [Digna Allergy] 180 mg PO DAILY PRN 03/21/21 [History] Lactase [Lactaid] 3,000 unit PO DIRECTED PRN 03/21/21 [History] Levothyroxine Sodium [Tirosint] 88 mcg PO QAM 03/21/21 [History] Montelukast Sodium [Singulair] 10 mg PO HS 03/21/21 [History] calcitrioL [Calcitriol] 0.25 mcg PO DAILY 03/21/21 [History] diphenhydrAMINE HCL [Children's Benadryl Allergy] 12.5 mg PO HS PRN 03/21/21 [History] Ascorbic Acid [Vitamin C] 1,000 mg PO TID 10/14/21 [History] Fluticasone Propion/Salmeterol [Wixela 500-50 Inhub] 1 inhalation PO BID 10/14/21 [History] Calcium Carbonate [Calcium] 1 tab PO DAILY 07/21/22 [History] Ketotifen 0.025% Ophth Soln [Zaditor] 1 drop BOTH EYES DAILY 07/21/22 [History] Magnesium Citrate and Oxide [Magnesium] 1 tab PO DAILY 07/21/22 [History] hydroCHLOROthiazide 0.5 tab PO QAM 07/21/22 [History] Ciprofloxacin HCl [Cipro] 250 mg PO BID 09/29/22 [History]
[2022-10-03 14:06] VITALS: BP 117/60; PULSE 94
== END ==
LOC: OR 07:11 → 2ORMAIN 07:11 → UNDOADMIN 07:11 → EDSTATUS 07:30 → UNDODISIN 12:49
PROVIDERS: ATTEND Surgery Plastic and Reconstructive Surgery
DX: D12.2 Benign neoplasm of ascending colon (principal); Z53.09 Procedure and treatment not carried out because of other contraindication; E87.6 Hypokalemia; R11.2 Nausea with vomiting, unspecified; J45.909 Unspecified asthma, uncomplicated; E89.0 Postprocedural hypothyroidism; Z79.890 Hormone replacement therapy
CPT/HCPCS: 86900; 86901; 80053; 84132; 85025; 86850; J1100; J3480; J2405

== ENCOUNTER → 2022-11-14 | Outpatient (CLI) | payer BC ==
--- NOTE | 2022-11-14 13:24 | CA ---
Exercise Stress Test Report Name: Denise Lyn Exam Date: 11/14/2022 11:40 Exam Location: [place] Stress Ht (in): 60 Wt (lb): 130 BSA: 1.55 Ordering Phys: Kirstin Lewis DO Referring Phys: KIRSTIN LEWIS,, Technologist: Mac Arvizu Age: 57 Gender: F : 1965 Procedure CPT: Indications: I45.19 other right bundle block ICD-10 Codes: Patient History: Medications: Meds past 24 hrs: Pretest Chest Pain: STRESS TEST Isidro Protocol Exercise Duration (min:sec): 03:[address] Depressions (mm): Angina Score: Garcia Score: Resting HR (bpm): 89 Peak HR (bpm): 149 Resting BP (mmHg): 114 / 77 Peak BP (mmHg): 157 / 77 MPHR: 161 Target HR: 137 % MPHR: 93 METS: 5.9 Total Dose: Peak Dose: Atropine: Double Product: 01849 BP Response: Stress Termination: Reached target heart rate Stress Symptoms: No chest pain or symptoms Stress Summary: The patient's target heart rate was achieved ECG ANALYSIS Resting ECG: Sinus rhythm. Incomplete right bundle branch block. No arrhythmias. Non-specific ST-T wave changes. Stress ECG: Nonspecific ST-T abnormality. CONCLUSIONS 1. Poor exercise tolerance 2. Nondiagnostic EKG stress testing secondary to baseline EKG abnormality 3. If clinically indicated an imaging stress test would be helpful Dr. Josh Bhatti MD (Electronically Signed) Final Date: 14 November 2022 13:23
== END | disposition home or self-care (01) ==
LOC: RADNMMAIN 10:24
PROVIDERS: ATTEND Family Medicine
DX: I45.19 Other right bundle-branch block (principal); R94.31 Abnormal electrocardiogram [ECG] [EKG]
CPT/HCPCS: 93017

== ENCOUNTER → 2023-02-04 | Outpatient (CLI) | payer BC ==
[~2023-02-04] MED LIST changes: -ACETAMINOPHEN TAB 500 MG TAB PO PRN; -ALVIMOPAN 12 MG CAPSULE PO PRN; -Antibiotics per Pharmacy 1 EACH MISC MISCELLANE PRN; -DEXAMETHASONE SOD PHOSPHATE 4 MG/ML 1 ML VIAL IV ONE; -HEPARIN SODIUM,PORCINE/PF 5,000 UNIT/0.5 ML SYRINGE SQ PRN; -HYDROmorphone 0.5 MG/0.5 ML SYRINGE IVP PRN; -LACTATED RINGERS 1,000 ML IV ONE; -LACTATED RINGERS 1,000 ML IV SCH; -LIDOCAINE 1% (10MG/ML) FOR IV START INTRADERMA PRN; -ONDANSETRON 4 MG/2 ML VIAL IVP PRN; -POTASSIUM CHLORIDE 20 MEQ in WATER FOR INJECTION 1 100ML.BAG IVPB STA; -POTASSIUM CHLORIDE ER 20 MEQ TAB.ER PO STA; +REGADENOSON 0.4 MG/5 ML SYRINGE IV PRN; -SODIUM CHLORIDE 0.9% 2,000 ML IV ONE; -metroNIDAZOLE-NS PMX 500 MG in SALINE 1 100ML.BAG IVPB PRN
--- NOTE | 2023-02-04 11:45 | NM ---
EXAMINATION TYPE: NM stress lexiscan cardiolite DATE OF EXAM: 02/04/2023 COMPARISON: NONE CLINICAL INDICATION: Female, 57 years old with history of I45.19 OTHER RIGHT BUNDLE-BRANCH BLOCK; TECHNIQUE: After the intravenous administration of 10.1 mCi Tc 99m Sestamibi - Cardiolite resting SP ECT images acquired 53 minutes post injection. The patient received 0.4mg Lexiscan, 25.3 mCi Tc 99m Sestamibi - Stress images obtained [address] injection FINDINGS: Review of stress and rest SPECT images demonstrates no distinct perfusion abnormality. Gated analysi s shows normal wall motion with an estimated left ventricular ejection fraction of 73 %. IMPRESSION: No scintigraphic evidence for reversible ischemia.
--- NOTE | 2023-02-04 12:22 | CA ---
Lexiscan Nuclear Stress Test Report Name: Denise Lyn Exam Date: 02/04/2023 09:14 Exam Location: [place] Stress Ht (in): 60 Wt (lb): 130 BSA: 1.55 Ordering Phys: Ben Webber DO Referring Phys: Kamille Birmingham MD Technologist: Mac Arvizu Age: 57 Gender: F : 1965 Procedure CPT: Indications: I45.19 OTHER RIGHT BUNDLE-BRANCH BLOCK ICD-10 Codes: Patient History: DIFFICULTY IN BREATHING, PALPITATIONS, ELEVATED CHOLESTEROL LEVELS, FAMILY HX OF HEART DISEASE, ASTHMA Medications: Meds past 24 hrs: Pretest Chest Pain: STRESS TEST Lexiscan Protocol Exercise Duration (min:sec): 02:[address] Depressions (mm): Angina Score: Garcia Score: Resting HR (bpm): 76 Peak HR (bpm): 117 Resting BP (mmHg): 119 / 75 Peak BP (mmHg): 131 / 79 MPHR: 161 Target HR: 137 % MPHR: 73 METS: 1.0 Total Dose: Peak Dose: Atropine: Double Product: 18208 BP Response: Stress Termination: INFUSION COMPLETE Stress Symptoms: NO SYMPTOMS Stress Summary: ECG ANALYSIS Resting ECG: Stress ECG: CONCLUSIONS Nondiagnostic electrocardiogram stress testing Dr. Papi Huggins MD (Electronically Signed) Final Date: 04 February 2023 12:21
== END | disposition home or self-care (01) ==
LOC: RADNMMAIN 07:39
PROVIDERS: ATTEND Family Medicine
DX: I45.19 Other right bundle-branch block (principal)
CPT/HCPCS: 93017; 78452; A9500; J2785

== ENCOUNTER → 2023-04-07 | Outpatient (CLI) | payer OTHER ==
[2023-04-07 19:00] LABS: ALT 72 U/L (8-44); AST 53 U/L (13-35); Albumin 4.4 g/dL (3.8-4.9); Albumin/Globulin Ratio 1.83 Ratio (1.60-3.17); Alkaline Phosphatase 78 U/L (41-126); BUN/Creat Ratio 19.75 Ratio (12.00-20.00); Blood Urea Nitrogen 7.9 mg/dL (9.0-27.0); Chloride 98 mmol/L (96-109); Globulin 2.4 g/dL (1.6-3.3); Glucose 102 mg/dL (70-110); Potassium 3.9 mmol/L (3.5-5.5); Sodium 140 mmol/L (135-145); Total Bilirubin <0.2 mg/dL (0.3-1.2); Total Protein 6.8 g/dL (6.2-8.2)
[2023-04-07 19:14] LABS: HCT 37.6 % (37.2-46.3); HGB 12.4 g/dL (12.0-15.0); MCH 33.7 pg (27.0-32.0); MCV 102.2 FL (80.0-97.0); NRBC Per 100 WBC 0 X 10*3/uL (0.00-0.01); Platelet Count 263 X 10*3/uL (140-440); RBC 3.68 X 10*6/uL (4.10-5.20); RDW 12.3 % (11.5-14.5); WBC 8.61 X 10*3/uL (4.50-10.00)
== END | disposition home or self-care (01) ==
LOC: LABWHC1 13:09
PROVIDERS: ATTEND Surgery Plastic and Reconstructive Surgery
DX: D12.6 Benign neoplasm of colon, unspecified (principal)
CPT/HCPCS: 36415; 80053; 85027

== ENCOUNTER → 2023-04-28 | Outpatient (CLI) | payer OTHER ==
[2023-04-28 12:52] LABS: INR 0.9 (<1.2); Partial Thromboplastin Time 24.7 sec (22.0-30.0); Prothrombin Time 10.3 sec (10.0-12.5)
[2023-04-28 15:36] LABS: HCT 36.2 % (37.2-46.3); HGB 12.2 g/dL (12.0-15.0); MCH 33.8 pg (27.0-32.0); MCHC 33.7 g/dL (32.0-37.0); MCV 100.3 FL (80.0-97.0); Mean Platelet Volume 11.6 FL (9.5-12.2); NRBC Per 100 WBC 0 X 10*3/uL (0.00-0.01); Platelet Count 274 X 10*3/uL (140-440); RBC 3.61 X 10*6/uL (4.10-5.20); RDW 12.3 % (11.5-14.5); WBC 7.19 X 10*3/uL (4.50-10.00)
[2023-04-28 16:01] LABS: Prealbumin 24.1 mg/dL (18.0-42.0)
[2023-04-28 16:15] LABS: % Iron Saturation 21.65 (12.00-45.00); ALT 49 U/L (8-44); AST 33 U/L (13-35); Albumin 4.5 g/dL (3.8-4.9); Albumin/Globulin Ratio 1.96 Ratio (1.60-3.17); Alkaline Phosphatase 72 U/L (41-126); Blood Urea Nitrogen 7.1 mg/dL (9.0-27.0); Calcium 8.8 mg/dL (8.7-10.3); Carbon Dioxide 29.7 mmol/L (21.6-31.8); Chloride 101 mmol/L (96-109); Chol/HDL Ratio 2.72 Ratio; Globulin 2.3 g/dL (1.6-3.3); Glucose 98 mg/dL (70-110); Iron 76 UG/DL (50-170); LDL Cholesterol,Calculated 93.3 mg/dL (0.0-131.0); Phosphorus 4.9 mg/dL (2.4-5.1); Potassium 3.8 mmol/L (3.5-5.5); Sodium 143 mmol/L (135-145); Total Bilirubin 0.3 mg/dL (0.3-1.2); Total Iron Binding Capacity 351 UG/DL (228-460); Total Protein 6.8 g/dL (6.2-8.2)
[2023-04-28 17:20] LABS: Vitamin B12 >1800.0 pg/mL (200.0-944.0)
[2023-04-29 12:09] LABS: Zinc, Serum 64 ug/dL (60-130)
[2023-04-30 06:31] LABS: Vitamin A 45 ug/dL (38-106)
[2023-04-30 07:52] LABS: Vit B1(Thiamine) 104 ug/L (38-122)
== END | disposition home or self-care (01) ==
LOC: LABWHC1 12:10
PROVIDERS: ATTEND Surgery Plastic and Reconstructive Surgery
DX: E66.01 Morbid (severe) obesity due to excess calories (principal); E89.1 Postprocedural hypoinsulinemia; D50.9 Iron deficiency anemia, unspecified; E44.1 Mild protein-calorie malnutrition; E55.9 Vitamin D deficiency, unspecified; K74.1 Hepatic sclerosis
CPT/HCPCS: 36415; 80053; 80061; 82306; 82525; 82607; 82728; 82746; 83036; 83540; 83550; 83735; 83970; 84100; 84134; 84255; 84425; 84443; 84590; 84630; 85027; 85610; 85730

== ENCOUNTER → 2023-06-16 | Outpatient (CLI) | payer OTHER ==
[2023-06-16 18:59] LABS: Basophils # (A) 0.08 X 10*3/uL (0.00-0.10); Basophils % (A) 0.9 %; Eosinophils # (A) 0.06 X 10*3/uL (0.04-0.35); Eosinophils % (A) 0.7 %; HGB 12.1 g/dL (12.0-15.0); Lymphocytes # (A) 2.02 X 10*3/uL (0.90-5.00); Lymphocytes % (A) 23.5 %; MCH 33.6 pg (27.0-32.0); MCHC 33.6 g/dL (32.0-37.0); Monocytes # (A) 0.64 X 10*3/uL (0.20-1.00); Monocytes % (A) 7.4 %; NRBC Per 100 WBC 0 X 10*3/uL (0.00-0.01); Neutrophils # (A) 5.78 X 10*3/uL (1.80-7.70); Neutrophils % (A) 67.2 %; Platelet Count 241 X 10*3/uL (140-440); RDW 12.2 % (11.5-14.5); WBC 8.61 X 10*3/uL (4.50-10.00)
== END | disposition home or self-care (01) ==
LOC: LABPAT 13:48
PROVIDERS: ATTEND Surgery Plastic and Reconstructive Surgery
DX: Z01.812 Encounter for preprocedural laboratory examination (principal)
CPT/HCPCS: 36415; 85025; 86850; 86900; 86901

== ENCOUNTER 2023-06-19 07:16 | Inpatient (IN) | payer OTHER ==
[2023-06-16 12:28] VITALS: BMI 25.9
--- NOTE | 2023-06-19 06:48 | P.GSHP ---
History of Present Illness H&P Date: 06/19/23 CHIEF COMPLAINT: Unresectable adenoma HISTORY OF PRESENT ILLNESS: The patient is a 58-year-old female with a 3-year history of recurrent growth unresectable adenoma of the ascending colon/hepatic flexure via endoscopic technique. Now she presents for sigmoid colon resection. No recent blood in stools. She has multiple allergies. PAST MEDICAL HISTORY: Please see list. PAST SURGICAL HISTORY: Please see list. MEDICATIONS: Please see list. ALLERGIES: Please see list. SOCIAL HISTORY: No illicit drug use FAMILY HISTORY: No reports of Crohn disease or ulcerative colitis. REVIEW OF ORGAN SYSTEMS: CONSTITUTIONAL: Denies any fever or chills. HEENT: Denies any trouble with vision or nosebleeds. No difficulty swallowing. LYMPHATIC: The patient denies any lumps and bumps around the neck. ENDOCRINE: Denies any thyroid disorders. Denies blood sugar glucose intolerance. RESPIRATORY: Denies pneumonia. Denies any troubles with breathing or dyspnea on exertion. CARDIOVASCULAR: Denies any chest pain, palpitations, or recent heart attacks. She has prior cardiac clearance. Has hypertension. GASTROINTESTINAL: Recurrent unresectable adenoma. Has multiple drug ALLERGIES. GENITOURINARY: Has increased urinary frequency. MUSCULOSKELETAL: Has back pain, stiffness, joint arthritis. NEUROLOGIC: Denies any numbness or tingling along the distal extremities. No seizure disorders or headaches. PSYCHIATRIC: Denies depression or suidical ideation. HEMATOLOGIC: Denies any abnormal bleeding or bruising. PHYSICAL EXAM: VITAL SIGNS: Stable GENERAL: Well-developed pleasant in no acute distress. HEENT: No scleral icterus. Extraocular movements grossly intact. Moist buccal mucosa. He is hard of hearing. NECK: Supple without lymphadenopathy. CHEST: Unlabored respirations. Equal bilateral excursions. CARDIOVASCULAR: Regular rate and rhythm. Distal 2+ pulses. ABDOMEN: Soft, nontender, nondistended. MUSCULOSKELETAL: No clubbing, cyanosis, or edema. NERUO: Regular 2-12 grossly intact. PSYCH: Alert and oriented to person place and time. ASSESSMENT: 1. Unresectable adenoma, ascending/hepatic flexure 2. Multiple drug ALLERGIES PLAN: 1. Benefits and risks of surgical intervention right colectomy for unresectable adenoma. Robotic-assisted approach was also described. 2. She has completed an enhanced colon recovery program. 3. DVT prophylaxis. 4. Antibiotic prophylaxis. 5. She is elevated risk due to pre-existing comorbidities 6. CBC, CMP, type and screen on day of procedure. 7. IV fluid bolus 1-L prior to procedure Past Medical History Past Medical History: Asthma, Blood Disorder, GERD/Reflux, Thyroid Disorder Additional Past Medical History / Comment(s): Current "small non open sore above buttock, think it's a spider bite." Swelling of right big toe, dropped bar of soap on it." Hypoglycemia. Hx rectal bleeding/Diverticulitis. Multiple food and environmental allergies. Headches. Hx anemia 40 yrs ago. Varicose veins. History of Any Multi-Drug Resistant Organisms: None Reported Past Surgical History: Tonsillectomy, Tubal Ligation Additional Past Surgical History / Comment(s): Thyroidectomy, colonoscopy X3, colon tumor and polyps removed. Past Anesthesia/Blood Transfusion Reactions: Previous Problems w/ Anesthesia Additional Past Anesthesia/Blood Transfusion Reaction / Comment(s): "Had wheezing and no voice for weeks after thyroidectomy". Smoking Status: Never smoker - Past Family History Mother Family Medical History: No Reported History Medications and Allergies Home Medications Medication Instructions Recorded Confirmed Type Acetaminophen [Tylenol Extra 1,000 mg PO BID PRN 03/21/21 06/16/23 History Strength] Lactase [Lactaid] 3,000 unit PO DIRECTED PRN 03/21/21 06/16/23 History Montelukast Sodium [Singulair] 10 mg PO HS 03/21/21 06/16/23 History calcitrioL 0.25 mcg PO DAILY 03/21/21 06/16/23 History diphenhydrAMINE HCL [Children's 5 - 15 ml PO HS 03/21/21 06/16/23 History Benadryl Allergy] Fluticasone Propion/Salmeterol 1 inhalation PO BID 10/14/21 06/16/23 History [Wixela 500-50 Inhub] Calcium Carbonate [Calcium] 2 tab PO TID 07/21/22 06/16/23 History Magnesium Citrate and Oxide 1 tab PO TID 07/21/22 06/18/23 History [Magnesium] Albuterol Inhaler [Ventolin Hfa 1 - 2 puff INHALATION HS 06/16/23 06/16/23 History Inhaler] Ascorbic Acid [Vitamin C] 500 mg PO TID 06/16/23 06/18/23 History Levothyroxine Sodium [Tirosint] 88 mcg PO QAM 06/16/23 06/16/23 History Vitamin B 100 Complex 1 tab PO DAILY 06/16/23 06/18/23 History calcium polycarbophiL [Fibercon] 625 mg PO DAILY 06/16/23 06/16/23 History Allergies Allergy/AdvReac Type Severity Reaction Status Date / Time aloe Allergy Rash/Hives Verified 06/16/23 11:22 banana Allergy Unknown Verified 06/16/23 11:22 blackberry Allergy Swelling Verified 06/16/23 11:22 cabbage Allergy Abdominal Verified 06/16/23 11:22 Pain cefaclor [From Ceclor] Allergy Unknown Verified 06/16/23 11:22 citric acid Allergy Unknown Verified 06/16/23 11:22 [place]ign[place] And Derivatives Allergy Unknown Verified 06/16/23 11:22 [Lignite] clarithromycin [From Biaxin] Allergy Diarrhea Verified 06/16/23 11:22 coffee (Coffea arabica) Allergy Wheezing Verified 06/16/23 11:22 egg Allergy Vomiting Verified 06/16/23 11:22 Fish Containing Products Allergy Unknown Verified 06/16/23 11:22 [Fish] ipratropium Allergy Unknown Verified 06/16/23 11:22 kiwi Allergy Unknown Verified 06/16/23 11:22 latex Allergy BURNING Verified 06/16/23 11:22 FEELING OF MOUTH,ITCHING levothyroxine sodium Allergy Depression Verified 06/16/23 12:05 [From Synthroid] Milk Containing Products Allergy Diarrhea Verified 06/16/23 11:22 (Dairy) [Dairy] onion Allergy Gas Verified 06/16/23 11:22 peanut Allergy Burning Verified 06/16/23 11:22 skin peas Allergy Rash/Hives Verified 06/16/23 11:22 potato Allergy Abdominal Verified 06/16/23 11:22 Pain raspberry Allergy Swelling Verified 06/16/23 11:22 silk Allergy Rash/Hives Verified 06/16/23 11:22 spinach Allergy Rash/Hives Verified 06/16/23 11:22 Sulfa (Sulfonamide Allergy Alters mood Verified 06/16/23 11:22 Antibiotics) sulfamethoxazole Allergy Rash/Hives Verified 06/16/23 11:22 [From Septra] trimethoprim [From Septra] Allergy Rash/Hives Verified 06/16/23 11:22 Artificial Colors/Flavors Allergy Unknown Uncoded 06/16/23 11:22 PEPPERS Allergy Abdominal Uncoded 06/16/23 11:22 Pain Seafood Allergy Unknown Uncoded 06/16/23 11:22 Vegetables Allergy Pain Uncoded 06/16/23 11:22 (Abdominal/Back) YELLOW SQUASH Allergy Rash/Hives Uncoded 06/16/23 11:22
[~2023-06-19 07:16] MED LIST changes: +Antibiotics per Pharmacy 1 EACH MISC MISCELLANE PRN; +HYDROmorphone 0.5 MG/0.5 ML SYRINGE IVP PRN; +MIDAZOLAM 2 MG/2 ML VIAL IV PRN; -REGADENOSON 0.4 MG/5 ML SYRINGE IV PRN
[2023-06-19] MEDS: LACTATED RINGERS 1,000 ML IV SCH (07:39)
[2023-06-19] MEDS: ACETAMINOPHEN TAB 500 MG TAB PO PRN (07:52)
[2023-06-19] MEDS: ALVIMOPAN 12 MG CAPSULE PO PRN (07:52)
[2023-06-19] MEDS: ONDANSETRON 4 MG/2 ML VIAL IVP PRN (07:59)
[2023-06-19] MEDS: DEXAMETHASONE SOD PHOSPHATE 4 MG/ML 1 ML VIAL IVP ONE (07:59)
[2023-06-19] MEDS: fentaNYL (PF) 50 MCG/ML 2 ML AMP IVP ONE (08:05)
[2023-06-19] MEDS: MIDAZOLAM 2 MG/2 ML VIAL IVP ONE (08:05)
[2023-06-19 08:11] LABS: Basophils # (A) 0.1 k/uL (0-0.2); Basophils % (A) 1 %; Eosinophils # (A) 0.1 k/uL (0-0.7); Eosinophils % (A) 1 %; HGB 13.1 gm/dL (11.4-16.0); Lymphocytes # (A) 1.9 k/uL (1.0-4.8); Lymphocytes % (A) 28 %; MCH 33.5 pg (25.0-35.0); MCHC 33.6 g/dL (31.0-37.0); MCV 99.6 fL (80.0-100.0); Mean Platelet Volume 9.8; Monocytes # (A) 0.4 k/uL (0-1.0); Monocytes % (A) 6 %; Neutrophils # (A) 4.1 k/uL (1.3-7.7); Neutrophils % (A) 62 %; Platelet Count 230 k/uL (150-450); RBC 3.92 m/uL (3.80-5.40); RDW 11.8 % (11.5-15.5); WBC 6.6 k/uL (3.8-10.6)
[2023-06-19] MEDS: HEPARIN SODIUM,PORCINE 5,000 UNIT/ML 1 ML VIAL SQ PRN (08:17)
[2023-06-19 08:22] LABS: ALT 35 U/L (4-34); AST 38 U/L (14-36); African American GFR (CKD) >90 (>60 ml/min/1.73 sqM); Albumin 4.2 g/dL (3.5-5.0); Alkaline Phosphatase 68 U/L (38-126); Anion Gap 8 mmol/L; Blood Urea Nitrogen 10 mg/dL (7-17); Carbon Dioxide 32 mmol/L (22-30); Chloride 102 mmol/L (98-107); Glucose 82 mg/dL (74-99); Non-African American GFR(CKD) >90 (>60 ml/min/1.73 sqM); Potassium 3.6 mmol/L (3.5-5.1); Sodium 142 mmol/L (137-145); Total Bilirubin 0.5 mg/dL (0.2-1.3); Total Protein 6.9 g/dL (6.3-8.2)
[2023-06-19] MEDS ORDERED: DEXAMETHASONE SOD PHOSPHATE 4 MG/ML 1 ML VIAL ONE (08:22)
[2023-06-19] MEDS ORDERED: ROCURONIUM 10 MG/ML (5 ML VIAL) IV ONE (08:22)
[2023-06-19] MEDS ORDERED: fentaNYL (PF) 50 MCG/ML 2 ML AMP ONE (08:22)
[2023-06-19] MEDS ORDERED: LIDOCAINE 1% INJ 10MG/ML (20 ML MDV) ONE (08:22)
[2023-06-19] MEDS ORDERED: SODIUM CHLORIDE 0.9% (PF) 10 ML VIAL ONE (08:22)
[2023-06-19] MEDS ORDERED: SUCCINYLCHOLINE CHLORIDE 200 MG/10 ML VIAL IV ONE (08:22)
[2023-06-19] MEDS ORDERED: NEOSTIGMINE 1 MG/ML 10 ML VIAL ONE (08:22)
[2023-06-19] MEDS ORDERED: ROPIVACAINE 5 MG/ML 30 ML VIAL ONE (08:22)
[2023-06-19] MEDS ORDERED: PHENYLEPHRINE 10 MG/ML VIAL ONE (08:22)
[2023-06-19] MEDS ORDERED: PROPOFOL 10 MG/ML 20 ML VIAL IV ONE (08:22)
[2023-06-19] MEDS ORDERED: GLYCOPYRROLATE 0.2 MG/ML 2 ML VIAL ONE (08:22)
[2023-06-19] MEDS: metroNIDAZOLE-NS PMX 500 MG in SALINE 1 100ML.BAG IVPB PRN (08:30)
--- NOTE | 2023-06-19 08:45 | P.ANPRN ---
Procedure Note - Anesthesia - Nerve Block Performed Bilateral Erector Spinae Single Time Out Performed: Yes Date of Procedure: 06/19/23 Procedure Start Time: :04 Procedure Stop Time: 08:12 Location of Patient: PreOp Indication: Acute Post-Operative Pain, Requested by Surgeon Sedation Type: Sedate with meaningful contact maintained Preparation: Sterile Prep Position: Prone Needle Types: Pajunk Needle Gauge: 21 Ultrasound used to visualize needle placement: Yes Ultrasound used to observe medication spread: Yes Injectate: 0.5% Ropivacaine (see comment for volume) (Ropivacaine 0.5% 15 ml + 15 ml NS + 4 mg Dexamethasone per side) Blood Aspirated: No Pain Paresthesia on Injection Noted: No Resistance on Injection: Normal Image Stored and Saved: Yes Events: Uneventful and Well Tolerated
[2023-06-19] MEDS: LIDOCAINE 1%-EPI 1:100,000 20 ML VIAL SQ ONE ×2 (09:04→09:23)
[2023-06-19] MEDS: LACTATED RINGERS 1,000 ML IV ONE (10:13)
[2023-06-19 11:55] LABS: Glucose,Whole Blood 147 mg/dL (70-110)
[2023-06-19] MEDS ORDERED: HYDROmorphone 1 MG/ML 1 ML SYRINGE IVP PRN (12:22)
[2023-06-19] MEDS ORDERED: METOCLOPRAMIDE 5 MG/ML 2 ML VIAL IVP PRN (12:22)
[2023-06-19] MEDS ORDERED: ONDANSETRON 4 MG/2 ML VIAL IVP PRN (12:22)
[2023-06-19] MEDS ORDERED: BENZOCAINE/MENTHOL LOZENG 1 EACH LOZENGE MUCOUS MEM PRN (12:22)
[2023-06-19] MEDS ORDERED: NALOXONE 0.4 MG/ML 1 ML VIAL IV PRN (12:24)
[2023-06-19] MEDS ORDERED: NON FORMULARY DRUG (Lactase [Lactaid] 3,000 UNIT Tablet) PO PRN (12:25)
[2023-06-19] MEDS: KETOROLAC 15 MG/ML 1 ML VIAL IVP SCH (12:34)
--- NOTE | 2023-06-19 12:39 | P.OP ---
Date of Procedure: 06/19/23 Description of Procedure: SURGEON: MART LEON MD Preoperative Diagnosis: 1. Unresectable proximal ascending colon adenoma 2. Gastroesophageal reflux disease 3. Hypothyroidism 4. Asthma 5. Posttraumatic stress disorder 6. Multiple food allergies 7. Chronic hypocalcemia 8. Chronic hypokalemia Postoperative Diagnosis: 1. Unresectable proximal ascending colon adenoma 2. Gastroesophageal reflux disease 3. Hypothyroidism 4. Asthma 5. Posttraumatic stress disorder 6. Multiple food allergies 7. Chronic hypocalcemia 8. Chronic hypokalemia 9. Right inguinal hernia Procedure(s) Performed: 1. Robot-assisted daVinci Xi laparoscopic ileocolectomy with right hemicolectomy using multi four-port technique Anesthesia: GETA, local, regional Estimated Blood Loss (ml): 10 Pathology: other (Right colon) Condition: stable SPECIMENS REMOVED: right colon en bloc. COMPLICATIONS: None. Disposition: floor Operative Findings: 1. Tattoo proximal ascending colon resected 2. Right inguinal hernia, indirect, 2 cm without obstruction or incarceration 3. Thickened gallbladder wall suspicious for chronic cholecystitis 4. Redundant hepatic flexure INDICATIONS: The patient is a 58-year-old female who presents with unresectable proximal ascending colon adenoma. Multiple attempts for excision by endoscopic technique was performed however unsuccessful. Surgical intervention with colon resection was described in detail. Benefits and risks, including infection, open surgery possibility for additional surgery was discussed at length. Informed consent was obtained. All questions of the patient and family were answered. DESCRIPTION: Earlier the patient had undergone a bowel prep using the enhanced colon recovery program. The patient was transferred to the operating room and placed in supine position. After general anesthetic, a fernando catheter was placed. The abdomen was then prepped and draped in standard sterile fashion as Ioban was placed along the abdomen to minimize any contamination of skin floor. After a timeout protocol was performed, attention was then brought to the left upper quadrant whereby a 0 degree 5 mm laparoscopic trocar entry was performed. The abdominal cavity was entered and insufflated to 15 mmHg pressure, which was tolerated well. Diagnostic laparoscopy demonstrated no injury to bowel, viscera or mesentery. Next two robotic 8-mm trocars were placed along the left lower lateral abdominal wall. A 12 mm trocar was placed along the left upper quadrant. Ports were placed 8 cm apart from each other including 15-20 cm away from the target anatomy of the pelvis. The 5-mm port was exchanged for a 12 mm robotic port. The patient was then placed in Trendelenburg position, at least 7 with left tilt 7 degrees. The robotic da Mere XI system was primed and docked from the left side of the patient. Using atraumatic graspers and vessel sealer, the robotic system was docked and primed as described. Instruments were interchanged by the pier master assistant including scissors, needle team cdl driver, robotic stapler and vessel sealer. Next, attention was brought to identify the cecum with tattooing. A stay suture using 0 silk was placed along the anterior serosa of the ascending colon including along the terminal ileum. The terminal ileum and ascending colon mesentery was mobilized using a vessel sealer whereby the colon was marked and tagged. Using robot stapler 60 mm white load, the distal ileum was divided at ileocecal valve. The mesentery of the ascending colon was mobilized towards the midline using a vessel sealer. Next, the ascending colon was divided using the robotic stapler 60 mm green staple load. The rest of the colon mesentery was mobilized using vessel sealer including using blunt dissection. The vascular pedicle of the ileocolic artery was controlled using using a vessel sealer. Hepatic flexure was highly redundant requiring additional dissection and mobilization. The proximal colon and distal ileum was brought in a side to side anastomotic fashion after placing interrupted sutures along the proposed regan- lumen using 3-0 silk. A colotomy and enterotomy was prepared along both limbs along the antimesenteric border. Next, 60 mm green stapler loads were fired to create the regan-lumen. The regan-lumen was reapproximated using 3-0 silk followed by 60 mm green load for closure of the enterostomy. All needles were removed from the abdominal cavity. The robot was undocked. I re-scrubbed into the case. Via the 12 mm port of the left upper quadrant, the right colon was removed using a 15-mm Endo Catch bag after widening the skin incision to 3-cm. All sponges were removed from the abdominal cavity. No contamination had occurred throughout this portion of the case. The fascial defect was oversewn using 0 Vicryl and Ambrosio Hernandez. Next all pneumoperitoneum was evacuated from the abdominal cavity. The 8-mm trocar sites were reapproximated using 4-0 Monocryl in an interrupted subcuticular fashion. Local anesthetic was infiltrated to all wounds for postop analgesia. All incisions were also cleansed with diluted hydrogen peroxide. An Optifoam surgical dressing was placed over the left upper quadrant incision of the colon extraction site. Exofin skin glue was applied to the rest of the skin incisions. The patient had tolerated the procedure well. The patient was extubated successfully. Intraoperative photos were reviewed with the patient's family who were overall pleased with the level of care. The patient was transferred to the postanesthesia care unit in stable condition.
[2023-06-19] MEDS: fentaNYL PCA 500 MCG/50 ML BAG IV SCH (13:55)
[2023-06-19] MEDS: D5-0.45% NACL WITH KCL 20MEQ/L 1,000 ML IV SCH (13:55)
[2023-06-19 16:37] LABS: Glucose,Whole Blood 154 mg/dL (70-110)
[2023-06-19] MEDS: ACETAMINOPHEN IV (For NPO) 1,000 MG in EMPTY BAG 1 BAG IVPB SCH (16:54)
[2023-06-19] MEDS: MAGNESIUM OXIDE 400 MG TAB PO SCH (16:54)
[2023-06-19 20:29] LABS: Glucose,Whole Blood 220 mg/dL (70-110)
[2023-06-19] MEDS: MONTELUKAST 10 MG TAB PO SCH (20:33)
[2023-06-19] MEDS: HEPARIN SODIUM,PORCINE 5,000 UNIT/ML 1 ML VIAL SQ SCH (20:35)
[2023-06-19] MEDS: SYMBICORT 160-4.5 MCG INHALER INHALATION SCH (20:41)
[2023-06-20 06:25] LABS: Glucose,Whole Blood 124 mg/dL (70-110)
[2023-06-20 09:51] LABS: Basophils # (A) 0.01 X 10*3/uL (0.00-0.10); Basophils % (A) 0.1 %; Eosinophils # (A) 0.01 X 10*3/uL (0.04-0.35); Eosinophils % (A) 0.1 %; HCT 32.4 % (37.2-46.3); HGB 11.1 g/dL (12.0-15.0); Lymphocytes # (A) 1.07 X 10*3/uL (0.90-5.00); Lymphocytes % (A) 10.4 %; MCH 33.5 pg (27.0-32.0); MCHC 34.3 g/dL (32.0-37.0); MCV 97.9 FL (80.0-97.0); Mean Platelet Volume 12.5 FL (9.5-12.2); Monocytes # (A) 0.91 X 10*3/uL (0.20-1.00); Monocytes % (A) 8.9 %; NRBC Per 100 WBC 0 X 10*3/uL (0.00-0.01); Neutrophils # (A) 8.23 X 10*3/uL (1.80-7.70); Neutrophils % (A) 80.1 %; Platelet Count 207 X 10*3/uL (140-440); RBC 3.31 X 10*6/uL (4.10-5.20); RDW 12.3 % (11.5-14.5); WBC 10.27 X 10*3/uL (4.50-10.00)
[2023-06-20 11:30] LABS: Glucose,Whole Blood 106 mg/dL (70-110)
[2023-06-20] MEDS: LEVOTHYROXINE SODIUM 88 MCG PO SCH (11:38)
[2023-06-20] MEDS: ALVIMOPAN 12 MG CAPSULE PO SCH (11:38)
[2023-06-20 11:46] LABS: Blood Urea Nitrogen 9.6 mg/dL (9.0-27.0); Calcium 7.2 mg/dL (8.7-10.3); Carbon Dioxide 25.3 mmol/L (21.6-31.8); Chloride 104 mmol/L (96-109); Glucose 134 mg/dL (70-110); Potassium 3.7 mmol/L (3.5-5.5); Sodium 142 mmol/L (135-145)
[2023-06-20 14:28] VITALS: BP 125/76; PULSE 68; RESP 19; TEMP 97.7
[2023-06-20 16:25] LABS: Glucose,Whole Blood 113 mg/dL (70-110)
--- NOTE | 2023-06-25 17:49 | P.DS ---
Providers Date of admission: 06/19/23 07:16 Expected date of discharge: 06/20/23 Attending physician: Kamille Birmingham Consults: 06/19/23 06:51 Consult Physician Routine Consulting Provider: [facility] Consult Reason/Comments: Regional block Do you want consulting provider notified?: Yes Primary care physician: Ben [facility] Course: Postoperative Diagnosis: 1. Unresectable proximal ascending colon adenoma 2. Gastroesophageal reflux disease 3. Hypothyroidism 4. Asthma 5. Posttraumatic stress disorder 6. Multiple food allergies 7. Chronic hypocalcemia 8. Chronic hypokalemia 9. Right inguinal hernia COURSE: The patient is a 58-year-old female who presented with unresectable ascending colon adenoma via endoscopic technique. She underwent robotic cholecystectomy without sequelae. Prior to discharge, patient was tolerating diet. Pain was well-controlled. Close follow-up as outpatient was reviewed. Patient was deemed stable for discharge by rounding physician. Procedures: Procedure(s) Performed: 1. Robot-assisted daVinci Xi laparoscopic ileocolectomy with right hemicolectomy using multi four-port technique Anesthesia: GETA, local, regional Estimated Blood Loss (ml): 10 Pathology: other (Right colon) Condition: stable SPECIMENS REMOVED: right colon en bloc. COMPLICATIONS: None. Disposition: floor Operative Findings: 1. Tattoo proximal ascending colon resected 2. Right inguinal hernia, indirect, 2 cm without obstruction or incarceration 3. Thickened gallbladder wall suspicious for chronic cholecystitis 4. Redundant hepatic flexure Patient Condition at Discharge: Good Plan - Discharge Summary Discharge Rx Participant: Yes New Discharge Prescriptions: New Cyclobenzaprine [Flexeril] 10 mg PO TID #30 tab Ibuprofen [Motrin] 600 mg PO Q8HR PRN #30 tab PRN Reason: Pain Continue Montelukast Sodium [Singulair] 10 mg PO HS Lactase [Lactaid] 3,000 unit PO DIRECTED PRN PRN Reason: When consuming dairy Calcium Carbonate [Calcium] 2 tab PO TID Magnesium Citrate and Oxide [Magnesium] 1 tab PO TID Albuterol Inhaler [Ventolin Hfa Inhaler] 1 - 2 puff INHALATION HS Levothyroxine Sodium [Tirosint] 88 mcg PO QAM calcium polycarbophiL [Fibercon] 625 mg PO DAILY diphenhydrAMINE HCL [Children's Benadryl Allergy] 5 - 15 ml PO HS calcitrioL 0.25 mcg PO DAILY Acetaminophen [Tylenol Extra Strength] 1,000 mg PO BID PRN PRN Reason: Pain Fluticasone Propion/Salmeterol [Wixela 500-50 Inhub] 1 inhalation PO BID Ascorbic Acid [Vitamin C] 500 mg PO TID Vitamin B 100 Complex 1 tab PO DAILY Discharge Medication List Acetaminophen [Tylenol Extra Strength] 1,000 mg PO BID PRN 03/21/21 [History] Lactase [Lactaid] 3,000 unit PO DIRECTED PRN 03/21/21 [History] Montelukast Sodium [Singulair] 10 mg PO HS 03/21/21 [History] calcitrioL 0.25 mcg PO DAILY 03/21/21 [History] diphenhydrAMINE HCL [Children's Benadryl Allergy] 5 - 15 ml PO HS 03/21/21 [History] Fluticasone Propion/Salmeterol [Wixela 500-50 Inhub] 1 inhalation PO BID 10/14/21 [History] Calcium Carbonate [Calcium] 2 tab PO TID 07/21/22 [History] Magnesium Citrate and Oxide [Magnesium] 1 tab PO TID 07/21/22 [History] Albuterol Inhaler [Ventolin Hfa Inhaler] 1 - 2 puff INHALATION HS 06/16/23 [History] Ascorbic Acid [Vitamin C] 500 mg PO TID 06/16/23 [History] Levothyroxine Sodium [Tirosint] 88 mcg PO QAM 06/16/23 [History] Vitamin B 100 Complex 1 tab PO DAILY 06/16/23 [History] calcium polycarbophiL [Fibercon] 625 mg PO DAILY 06/16/23 [History] Cyclobenzaprine [Flexeril] 10 mg PO TID #30 tab 06/19/23 [Rx] Ibuprofen [Motrin] 600 mg PO Q8HR PRN #30 tab 06/19/23 [Rx] Follow up Appointment(s)/Referral(s): Kamille Birmingham MD [STAFF PHYSICIAN] - 06/23/23 (TELEHEALTH - WILL CALL YOU BETWEEN 9 am to 8 pm ) Patient Instructions/Handouts: Low Fiber Diet (DC), Colectomy Diet (DC), Laparoscopic Bowel Resection (GEN) Activity/Diet/Wound Care/Special Instructions: EXPECT BOWEL MOVEMENT WITH BLOOD FOR 1 WEEK TAKE LAXATIVE FOR CONSTIPATION AFTER 4 DAYS, 06/23/23 Wear abdominal binder for comfort. No lifting over 4 pounds in 4 weeks July 18June shower. No bath tub soaks/swimming for two weeks until July 02 Avoid steak, tough meats and seeds such as raspberry seeds. See diverticulitis, low fiber, colectomy diet Use Tylenol and ibuprofen scheduled for the next 24-48 hours for best pain relief. Use ice along incisions for today to prevent swelling. Discharge Disposition: HOME SELF-CARE
== END 2023-06-20 17:16 | disposition home or self-care (01) | DRG 331 ==
LOC: 2ORMAIN 07:16 → 4SSUR 11:50
PROVIDERS: ADMIT Surgery Plastic and Reconstructive Surgery; ATTEND Surgery Plastic and Reconstructive Surgery
PROC: 3E0T3BZ Introduction of Anesthetic Agent into Peripheral Nerves and Plexi, Percutaneous Approach (ICD-10-PCS; 2023-06-19)
PROC: 3E0T33Z Introduction of Anti-inflammatory into Peripheral Nerves and Plexi, Percutaneous Approach (ICD-10-PCS; 2023-06-19)
PROC: 8E0W4CZ Robotic Assisted Procedure of Trunk Region, Percutaneous Endoscopic Approach (ICD-10-PCS; principal; 2023-06-19 09:10)
PROC: 0DTF4ZZ Resection of Right Large Intestine, Percutaneous Endoscopic Approach (ICD-10-PCS; principal; 2023-06-19 09:10)
DX: D12.2 Benign neoplasm of ascending colon (principal); E83.51 Hypocalcemia; E89.0 Postprocedural hypothyroidism; J45.909 Unspecified asthma, uncomplicated; G89.18 Other acute postprocedural pain; K21.9 Gastro-esophageal reflux disease without esophagitis; I83.90 Asymptomatic varicose veins of unspecified lower extremity; F43.10 Post-traumatic stress disorder, unspecified; T63.301A Toxic effect of unspecified spider venom, accidental (unintentional), initial encounter; K40.90 Unilateral inguinal hernia, without obstruction or gangrene, not specified as recurrent; Z79.890 Hormone replacement therapy; Z79.51 Long term (current) use of inhaled steroids; Z79.899 Other long term (current) drug therapy; Z88.1 Allergy status to other antibiotic agents; Z88.2 Allergy status to sulfonamides; Z91.040 Latex allergy status; Z88.8 Allergy status to other drugs, medicaments and biological substances
CPT/HCPCS: 64999; 80048; 80053; 85025; 88309; 94640; 94760

== ENCOUNTER → 2023-07-14 | Outpatient (CLI) | payer OTHER ==
[2023-07-15 04:36] LABS: T4, Free (Free Thyroxine) 1.41 ng/dL (0.80-1.80)
[2023-07-15 04:44] LABS: ALT 31 U/L (8-44); AST 23 U/L (13-35); Albumin 4.4 g/dL (3.8-4.9); Albumin/Globulin Ratio 1.91 Ratio (1.60-3.17); Alkaline Phosphatase 63 U/L (41-126); BUN/Creat Ratio 48.17 Ratio (12.00-20.00); Blood Urea Nitrogen 28.9 mg/dL (9.0-27.0); Calcium 9.3 mg/dL (8.7-10.3); Carbon Dioxide 27.4 mmol/L (21.6-31.8); Chloride 98 mmol/L (96-109); Globulin 2.3 g/dL (1.6-3.3); Glucose 97 mg/dL (70-110); Potassium 4.4 mmol/L (3.5-5.5); Sodium 139 mmol/L (135-145); Total Bilirubin <0.2 mg/dL (0.3-1.2); Total Protein 6.7 g/dL (6.2-8.2)
== END | disposition home or self-care (01) ==
LOC: LABWHC1 16:22
PROVIDERS: ATTEND Internal Medicine
DX: E03.9 Hypothyroidism, unspecified (principal); E20.9 Hypoparathyroidism, unspecified; E55.9 Vitamin D deficiency, unspecified
CPT/HCPCS: 36415; 80053; 82306; 83970; 84439; 84443

== ENCOUNTER → 2024-01-08 | Outpatient (CLI) | payer OTHER ==
[2024-01-08 10:22] LABS: Basophils # (A) 0.06 X 10*3/uL (0.00-0.10); Basophils % (A) 0.9 %; Eosinophils # (A) 0.05 X 10*3/uL (0.04-0.35); Eosinophils % (A) 0.8 %; HCT 37.4 % (37.2-46.3); HGB 12.4 g/dL (12.0-15.0); Lymphocytes # (A) 1.64 X 10*3/uL (0.90-5.00); Lymphocytes % (A) 25.1 %; MCH 32.5 pg (27.0-32.0); MCHC 33.2 g/dL (32.0-37.0); MCV 98.2 FL (80.0-97.0); Mean Platelet Volume 11.5 FL (9.5-12.2); Monocytes # (A) 0.54 X 10*3/uL (0.20-1.00); Monocytes % (A) 8.3 %; NRBC Per 100 WBC 0 X 10*3/uL (0.00-0.01); Neutrophils # (A) 4.22 X 10*3/uL (1.80-7.70); Neutrophils % (A) 64.6 %; Platelet Count 253 X 10*3/uL (140-440); RBC 3.81 X 10*6/uL (4.10-5.20); RDW 13.2 % (11.5-14.5); WBC 6.53 X 10*3/uL (4.50-10.00)
[2024-01-08 10:36] LABS: ALT 28 U/L (8-44); AST 22 U/L (13-35); Albumin 4.2 g/dL (3.8-4.9); Albumin/Globulin Ratio 1.83 Ratio (1.60-3.17); Alkaline Phosphatase 69 U/L (41-126); Blood Urea Nitrogen 14.4 mg/dL (9.0-27.0); Calcium 8.5 mg/dL (8.7-10.3); Carbon Dioxide 28.9 mmol/L (21.6-31.8); Chloride 103 mmol/L (96-109); Chol/HDL Ratio 2.25 Ratio; Globulin 2.3 g/dL (1.6-3.3); Glucose 91 mg/dL (70-110); LDL Cholesterol,Calculated 106.3 mg/dL (0.0-131.0); Phosphorus 5.2 mg/dL (2.4-5.1); Potassium 4.1 mmol/L (3.5-5.5); Sodium 144 mmol/L (135-145); T4, Free (Free Thyroxine) 1.41 ng/dL (0.80-1.80); Total Bilirubin 0.5 mg/dL (0.3-1.2); Total Protein 6.5 g/dL (6.2-8.2); VLDL Calculation 5.82 mg/dL (5.00-40.00)
== END | disposition home or self-care (01) ==
LOC: LABWHC1 07:08
PROVIDERS: ATTEND Family Medicine
DX: E21.3 Hyperparathyroidism, unspecified (principal); E03.9 Hypothyroidism, unspecified; R73.03 Prediabetes
CPT/HCPCS: 36415; 80053; 80061; 83036; 83970; 84100; 84439; 84443; 85025

== ENCOUNTER → 2024-06-14 | Outpatient (CLI) | payer OTHER ==
--- NOTE | 2024-06-14 07:43 | US ---
EXAMINATION TYPE: US abdomen complete DATE OF EXAM: 06/14/2024 COMPARISON: NONE CLINICAL INDICATION: Female, 59 years old with history of R10.11 RIGHT UPPER QUADRANT PAIN; pain TECHNIQUE: Grayscale and color Doppler imaging of the abdomen was performed. FINDINGS: EXAM MEASUREMENTS: Liver Length: 13.1 cm Gallbladder Wall: .2 cm CBD: 5.8 mm, color Doppler imaging was utilized to isolate the common bile duct for measurement. Spleen: 7.7 cm Right Kidney: 10.6 x 3.8 x 4.6 cm Left Kidney: 9.7 x 4.7 x 4.4 cm TELETRAY OPERATOR NOTES: Pancreas: wnl Liver: Mild increased echogenicity. No focal lesion. Gallbladder: No stones seen Evidence for sonographic Hernandez's sign: No CBD: Upper limits of normal in caliber Spleen: wnl Right Kidney: Within normal limits; No hydronephrosis, calculi or masses seen Left Kidney: Limited visualization of the upper pole due to bowel gas shadowing. Otherwise, within n ormal limits; No hydronephrosis, calculi or masses seen Upper IVC: wnl Abd Aorta: wnl IMPRESSION: 1. Suspect mild to moderate hepatic steatosis. Correlate with LFTs, lipid profile, and patient risk f actors. 2. No gallstones or biliary ductal dilatation. [facility], , 06/14/2024 7:41 AM
== END | disposition home or self-care (01) ==
LOC: RADUSWWP 07:05
PROVIDERS: ATTEND Family Medicine
DX: R10.11 Right upper quadrant pain (principal)
CPT/HCPCS: 76700

== ENCOUNTER → 2024-08-17 | Day surgery (SDC) | payer OTHER ==
[~2024-08-17] MED LIST changes: -Antibiotics per Pharmacy 1 EACH MISC MISCELLANE PRN; -HYDROmorphone 0.5 MG/0.5 ML SYRINGE IVP PRN; -MIDAZOLAM 2 MG/2 ML VIAL IV PRN; +PROPOFOL 10 MG/ML 20 ML VIAL IV ONE
--- NOTE | 2024-08-17 08:42 | P.GSHP ---
History of Present Illness H&P Date: 08/17/24 CHIEF COMPLAINT: Colon screen HISTORY OF PRESENT ILLNESS: The patient is a 59-year-old female who presents for colon screen. Lower endoscopy was offered for further evaluation and management. PAST MEDICAL HISTORY: Please see list. PAST SURGICAL HISTORY: Please see list. MEDICATIONS: Please see list. ALLERGIES: Please see list. SOCIAL HISTORY: No illicit drug use FAMILY HISTORY: No reports of Crohn disease or ulcerative colitis. REVIEW OF ORGAN SYSTEMS: CONSTITUTIONAL: No reports of fevers or chills. PHYSICAL EXAM: VITAL SIGNS: Stable GENERAL: Well-developed pleasant in no acute distress. HEENT: No scleral icterus. Extraocular movements grossly intact. Moist buccal mucosa. NECK: Supple without lymphadenopathy. CHEST: Unlabored respirations. Equal bilateral excursions. CARDIOVASCULAR: Regular rate and rhythm. Distal 2+ pulses. ABDOMEN: Soft, nontender, nondistended. MUSCULOSKELETAL: No clubbing, cyanosis, or edema. ASSESSMENT: 1. Colon screen. PLAN: 1. Recommend proceeding with a lower endoscopy Past Medical History Past Medical History: Asthma, Blood Disorder, GERD/Reflux, Thyroid Disorder Additional Past Medical History / Comment(s): Hypoglycemia. Hx rectal bleeding/Diverticulitis. Multiple food and environmental allergies. Headches. Hx anemia 40 yrs ago. Varicose veins. History of Any Multi-Drug Resistant Organisms: None Reported Past Surgical History: Tonsillectomy, Tubal Ligation Additional Past Surgical History / Comment(s): Thyroidectomy, colonoscopy X3, colon tumor and polyps removed. Past Anesthesia/Blood Transfusion Reactions: Previous Problems w/ Anesthesia Additional Past Anesthesia/Blood Transfusion Reaction / Comment(s): "Had wheezin g and no voice for weeks after thyroidectomy". Smoking Status: Never smoker - Past Family History Mother Family Medical History: No Reported History Medications and Allergies Home Medications Medication Instructions Recorded Confirmed Type Acetaminophen [Tylenol Extra 1,000 mg PO BID PRN 03/21/21 08/16/24 History Strength] Lactase [Lactaid] 3,000 unit PO DIRECTED PRN 03/21/21 08/16/24 History Montelukast Sodium [Singulair] 10 mg PO HS 03/21/21 08/16/24 History calcitrioL 0.25 mcg PO DAILY 03/21/21 08/16/24 History diphenhydrAMINE HCL [Children's 5 - 15 ml PO HS 03/21/21 08/16/24 History Benadryl Allergy] Fluticasone Propion/Salmeterol 1 inhalation PO BID 10/14/21 08/16/24 History [Wixela 500-50 Inhub] Calcium Carbonate [Calcium] 2 tab PO TID 07/21/22 08/16/24 History Magnesium Citrate and Oxide 1 tab PO TID 07/21/22 08/16/24 History [Magnesium] Albuterol Inhaler [Ventolin Hfa 1 - 2 puff INHALATION HS 06/16/23 08/16/24 History Inhaler] Ascorbic Acid [Vitamin C] 500 mg PO TID 06/16/23 08/16/24 History Levothyroxine Sodium [Tirosint] 88 mcg PO QAM 06/16/23 08/16/24 History calcium polycarbophiL [Fibercon] 625 mg PO DAILY 06/16/23 08/16/24 History Fexofenadine HCl [Digna Allergy] 180 mg PO DAILY 08/16/24 08/16/24 History methylPREDNISolone Dose Pack 4 mg PO DIRECTED 08/16/24 08/16/24 History [Medrol Dose Pack] Allergies Allergy/AdvReac Type Severity Reaction Status Date / Time aloe Allergy Rash/Hives Verified 06/19/23 07:30 banana Allergy Unknown Verified 06/19/23 07:30 blackberry Allergy Swelling Verified 06/19/23 07:30 cabbage Allergy Abdominal Verified 06/19/23 07:30 Pain cefaclor [From Ceclor] Allergy Unknown Verified 06/19/23 07:30 citric acid Allergy Unknown Verified 06/19/23 07:30 Lindrith And Derivatives Allergy Unknown Verified 06/19/23 07:30 [Lindrith] clarithromycin [From Biaxin] Allergy Diarrhea Verified 06/19/23 07:30 coffee (Coffea arabica) Allergy Wheezing Verified 06/19/23 07:30 egg Allergy Vomiting Verified 06/19/23 07:30 Fish Containing Products Allergy Unknown Verified 06/19/23 07:30 [Fish] ipratropium Allergy Unknown Verified 06/19/23 07:30 kiwi Allergy Unknown Verified 06/19/23 07:30 latex Allergy BURNING Verified 06/19/23 07:30 FEELING OF MOUTH,ITCHING levothyroxine sodium Allergy Depression Verified 06/19/23 07:30 [From Synthroid] Milk Containing Products Allergy Diarrhea Verified 06/19/23 07:30 (Dairy) [Dairy] onion Allergy Gas Verified 06/19/23 07:30 peanut Allergy Burning Verified 06/19/23 07:30 skin peas Allergy Rash/Hives Verified 06/19/23 07:30 potato Allergy Abdominal Verified 06/19/23 07:30 Pain raspberry Allergy Swelling Verified 06/19/23 07:30 silk Allergy Rash/Hives Verified 06/19/23 07:30 spinach Allergy Rash/Hives Verified 06/19/23 07:30 Sulfa (Sulfonamide Allergy Alters mood Verified 06/19/23 07:30 Antibiotics) sulfamethoxazole Allergy Rash/Hives Verified 06/19/23 07:30 [From Septra] trimethoprim [From Septra] Allergy Rash/Hives Verified 06/19/23 07:30 Artificial Colors/Flavors Allergy Unknown Uncoded 06/19/23 07:30 PEPPERS Allergy Abdominal Uncoded 06/19/23 07:30 Pain Seafood Allergy Unknown Uncoded 06/19/23 07:30 Vegetables Allergy Pain Uncoded 06/19/23 07:30 (Abdominal/Back) YELLOW SQUASH Allergy Rash/Hives Uncoded 06/19/23 07:30
[2024-08-17 10:18] VITALS: BP 124/96; PULSE 97; RESP 18; TEMP 96.8
[2024-08-17] MEDS: IV FLUID CONTINUATION 1,000 ML IV ONE (10:39)
[2024-08-17] MEDS: LACTATED RINGERS 1,000 ML IV SCH (10:53)
[2024-08-17 10:55] LABS: Glucose,Whole Blood 83 mg/dL (70-110)
--- NOTE | 2024-08-25 10:03 | P.PCN ---
Date of Procedure: 08/17/24 Description of Procedure: PREOPERATIVE DIAGNOSIS: Personal history of adenoma, high risk History of ascending colon resection due to adenoma POSTOPERATIVE DIAGNOSIS: Tubular adenoma, rectum Internal hemorrhoids, grade 4 OPERATION: Colonoscopy to the ileocolic anastomosis Colonoscopy with hot snare polypectomy SURGEON: Kamille Birmingham MD. ANESTHESIA: MAC. INDICATIONS: The patient is an 59-year-old female who presents colon resection for high risk adenoma of the ascending colon. She presents for colon screening. Benefits and risks were described and informed consent was obtained. DESCRIPTION OF PROCEDURE: The patient had undergone Sutab prep. The patient had been brought into the operating room and laid in the left lateral decubitus position. After adequate intravenous sedation, the rectum was examined with 2% lidocaine jelly. The prostate was unremarkable. External hemorrhoids were encountered. The rectal tone was within normal limits. No lesions were palpated in the rectal vault. An Olympus colonoscope was advanced until the ileocolic anastomosis clearly viewed. The prep was fair. No sigmoid diverticulosis was encountered. Colonic polyps were found and removed. No evidence of focal colitis was found. Retroflexion of the scope demonstrated grade 2 internal hemorrhoids without active bleeding or inflammation. The colon was desufflated. The patient had tolerated the procedure well. Withdrawal time was over 6 minutes. FINDINGS: Aronchick preparation quality scale 3 (1-5) Poor prep at ileocecal anastomosis, quality scale for Internal hemorrhoids, grade 4 External hemorrhoids, grade 4. No arteriovenous malformations. Sigmoid diverticulosis Removal of 1 polyp: - Snare polypectomy 10 cm from the anal verge, 4 mm tubulovillous adenoma, rectum No focal colitis. RECOMMENDATIONS: Repeat colonoscopy 3 years, 2027 with prolonged prep Plan - Discharge Summary Discharge Rx Participant: No New Discharge Prescriptions: Continue Montelukast Sodium [Singulair] 10 mg PO HS Lactase [Lactaid] 3,000 unit PO DIRECTED PRN PRN Reason: When consuming dairy Calcium Carbonate [Calcium] 2 tab PO TID Magnesium Citrate and Oxide [Magnesium] 1 tab PO TID Albuterol Inhaler [Ventolin Hfa Inhaler] 1 - 2 puff INHALATION HS Levothyroxine Sodium [Tirosint] 88 mcg PO QAM calcium polycarbophiL [Fibercon] 625 mg PO DAILY Fexofenadine HCl [Digna Allergy] 180 mg PO DAILY diphenhydrAMINE HCL [Children's Benadryl Allergy] 5 - 15 ml PO HS calcitrioL 0.25 mcg PO DAILY Acetaminophen [Tylenol Extra Strength] 1,000 mg PO BID PRN PRN Reason: Pain Fluticasone Propion/Salmeterol [Wixela 500-50 Inhub] 1 inhalation PO BID Ascorbic Acid [Vitamin C] 500 mg PO TID methylPREDNISolone Dose Pack [Medrol Dose Pack] 4 mg PO DIRECTED Discharge Medication List Acetaminophen [Tylenol Extra Strength] 1,000 mg PO BID PRN 03/21/21 [History] Lactase [Lactaid] 3,000 unit PO DIRECTED PRN 03/21/21 [History] Montelukast Sodium [Singulair] 10 mg PO HS 03/21/21 [History] calcitrioL 0.25 mcg PO DAILY 03/21/21 [History] diphenhydrAMINE HCL [Children's Benadryl Allergy] 5 - 15 ml PO HS 03/21/21 [History] Fluticasone Propion/Salmeterol [Wixela 500-50 Inhub] 1 inhalation PO BID 10/14/21 [History] Calcium Carbonate [Calcium] 2 tab PO TID 07/21/22 [History] Magnesium Citrate and Oxide [Magnesium] 1 tab PO TID 07/21/22 [History] Albuterol Inhaler [Ventolin Hfa Inhaler] 1 - 2 puff INHALATION HS 06/16/23 [History] Ascorbic Acid [Vitamin C] 500 mg PO TID 06/16/23 [History] Levothyroxine Sodium [Tirosint] 88 mcg PO QAM 06/16/23 [History] calcium polycarbophiL [Fibercon] 625 mg PO DAILY 06/16/23 [History] Fexofenadine HCl [Digna Allergy] 180 mg PO DAILY 08/16/24 [History] methylPREDNISolone Dose Pack [Medrol Dose Pack] 4 mg PO DIRECTED 08/16/24 [H istory] Follow up Appointment(s)/Referral(s): Kamille Birmingham MD [STAFF PHYSICIAN] - As Needed Patient Instructions/Handouts: *Surgery [facility] - (Anesthesia) Discharge Instructions Outpatient Surgery, Diverticulosis (DC), Colorectal Polyps (GEN), Diverticulosis Diet (GEN) Activity/Diet/Wound Care/Special Instructions: Repeat colonoscopy 3 years, 2027 Discharge Disposition: HOME SELF-CARE
== END | disposition home or self-care (01) ==
LOC: ORWHC2ENDO 09:36
PROVIDERS: ATTEND Surgery Plastic and Reconstructive Surgery
DX: Z12.11 Encounter for screening for malignant neoplasm of colon (principal); K64.3 Fourth degree hemorrhoids; D12.8 Benign neoplasm of rectum; Z86.0101 Personal history of adenomatous and serrated colon polyps; J45.909 Unspecified asthma, uncomplicated; K21.9 Gastro-esophageal reflux disease without esophagitis; E89.0 Postprocedural hypothyroidism; F43.10 Post-traumatic stress disorder, unspecified; Z87.19 Personal history of other diseases of the digestive system; Z90.89 Acquired absence of other organs; Z98.51 Tubal ligation status; Z79.899 Other long term (current) drug therapy; Z79.51 Long term (current) use of inhaled steroids; Z90.49 Acquired absence of other specified parts of digestive tract; Z79.890 Hormone replacement therapy; Z91.018 Allergy to other foods; Z91.040 Latex allergy status; Z88.8 Allergy status to other drugs, medicaments and biological substances; Z91.012 Allergy to eggs; Z91.011 Allergy to milk products; Z91.010 Allergy to peanuts; Z91.013 Allergy to seafood; Z88.2 Allergy status to sulfonamides; Z91.048 Other nonmedicinal substance allergy status
CPT/HCPCS: 88305; 45385; J2704